=== PATIENT | female | born 1990 | race Caucasian/White ===

== ENCOUNTER 2020-03-01 09:06 | Observation (INO) ==
[2020-03-01] MEDS ORDERED: NS 1000 ML 1,000 ML ONE (09:43)
[2020-03-01] MEDS ORDERED: ZOFRAN INJ 4 MG VIAL ONE (09:43)
[2020-03-01] MEDS ORDERED: DEMEROL INJ ONE (09:43)
[2020-03-01] MEDS ORDERED: ZOFRAN INJ 4 MG VIAL IVP ONE (09:46)
[2020-03-01] MEDS ORDERED: NS 1000 ML 1,000 ML IV ONE (09:46)
[2020-03-01] MEDS ORDERED: DEMEROL INJ IVP ONE (09:46)
--- NOTE | 2020-03-01 09:50 | ED.ABDFE ---
HPI Time Seen Time Seen by Provider: 03/01/20 09:46 PCP Primary Care Physician: OBED Complaint Chief Complaint:: PT C/O HAVING SEVERE ABD PAIN, NOT BEING ABLE TO KEEP ANYTHING DOWN. PT STATES SHE HAS NOTICED HAVING BLOOD TINGE IN HER VOMIT. PT STATES SHE WAS JUST RECENTLY DIAGNOSED WITH CHRONS AND SHE THINKS SHE IS HAVING A FLARE UP. PT STATES SHE HAS BEEN HAVING THESE PROBLEMS FOR THE PAST 2 WEEKS IT IS JUST NOT GETTING ANY BETTER ONLY WORSE, BUT WHEN SHE SEEN THE BLOOD TINGE SHE DECIDED SHE NEEDED TO BE SEEN COVID-19 Coronavirus risk:travel/contact w/high risk person: No Has patient experienced Coronavirus symptoms: No Source History Provided: Patient Mode of arrival Mode of Arrival: Ambulatory Timing Onset of Chief Complaint: 02/29/20 PMH PMH Past Medical History: Yes Past Medical History: GERD Past Medical History Comment: CHRONS Past Surgical History: Yes Surgical History: Appendectomy, and [facility] Family History History of Family Medical Conditions: Yes Family Medical History: Coronary Artery Disease and Hypertension Social History Does any household member use tobacco: No Alcohol Use: Rarely Do you use any recreational Drugs:: No Lives With: Family Lives Where: Home Travel Risk Coronavirus risk:travel/contact w/high risk person: No Has patient experienced Coronavirus symptoms: No Infectious screening In the last 2 months have you had wt loss of >10#?: NO Have you had fever, night sweats or hemotysis?: No Have you traveled outside the country in the last 6 months?: No Isolation: Standard PE Vital Signs Vitals: Temperature 98.1 F Pulse Rate 82 Respiratory Rate 22 Blood Pressure [Right Arm] 115/60 Blood Pressure 124/78 O2 Sat by Pulse Oximetry 96 ROR Labs Reviewed Result Diagrams: 03/01/20 09:42 03/01/20 09:42 Laboratory: WBC 13.3 X10^3/uL (3.6-10.0) H 03/01/20 09:42 RBC 4.63 X10^6/uL (3.5-5.4) 03/01/20 09:42 Hgb 13.2 g/dL (12.0-16.0) 03/01/20 09:42 Hct 39.5 % (36.0-47.0) 03/01/20 09:42 MCV 85.2 fL (80.0-100.0) 03/01/20 09:42 MCH 28.6 pg (27.0-34.0) 03/01/20 09:42 MCHC 33.5 g/dL (33.0-35.0) 03/01/20 09:42 RDW 13.4 % (11.6-16.5) 03/01/20 09:42 Plt Count 565 X10^3/uL (150.0-450.0) H 03/01/20 09:42 MPV 7.4 fL (7.4-11.0) 03/01/20 09:42 Neut % (Auto) 81.3 % (42.0-75.0) H 03/01/20 09:42 Lymph % (Auto) 9.1 % (21.0-51.0) L 03/01/20 09:42 [place] % (Auto) 8.9 % (0.0-13.0) 03/01/20 09:42 Eos % (Auto) 0.2 % (0.9-2.9) L 03/01/20 09:42 Baso % (Auto) 0.5 % (0.2-1.0) 03/01/20 09:42 Neut # (Auto) 10.8 x10^3/uL (2.2-4.8) H 03/01/20 09:42 Lymph # (Auto) 1.2 X10^3/uL (1.3-2.9) L 03/01/20 09:42 [place] # (Auto) 1.2 x10^3/uL (0.3-0.8) H 03/01/20 09:42 Eos # (Auto) 0.0 x10^3/uL (0.0-0.2) 03/01/20 09:42 Baso # (Auto) 0.1 X10^3/uL (0.0-0.1) 03/01/20 09:42 Absolute Nucleated RBC 0.0 /100WBC 03/01/20 09:42 Sodium 138 mmol/L (136-145) 03/01/20 09:42 Corrected Sodium TNP 03/01/20 09:42 Potassium 3.7 mmol/L (3.5-5.1) 03/01/20 09:42 Chloride 101 mmol/L (98-107) 03/01/20 09:42 Carbon Dioxide 25.1 mmol/L (21-32) 03/01/20 09:42 BUN 8 mg/dL (7-18) 03/01/20 09:42 Creatinine 0.89 mg/dL (0.55-1.02) 03/01/20 09:42 Est GFR (MDRD) Af Amer > 60 (>60) 03/01/20 09:42 Est GFR (MDRD) Non-Af > 60 (>60) 03/01/20 09:42 Glucose 97 mg/dL (65-99) 03/01/20 09:42 Calcium 9.2 mg/dL (8.5-10.1) 03/01/20 09:42 Corrected Calcium TNP 03/01/20 09:42 Total Bilirubin 0.50 mg/dL (0.2-1.0) 03/01/20 09:42 AST 21 Units/L (15-37) 03/01/20 09:42 ALT 47 Units/L (12-78) 03/01/20 09:42 Alkaline Phosphatase 90 Units/L (46-116) 03/01/20 09:42 Total Protein 7.9 g/dL (6.4-8.2) 03/01/20 09:42 Albumin 3.7 g/dL (3.4-5.0) 03/01/20 09:42 Globulin 4.2 g/dL (2.5-4.5) 03/01/20 09:42 Albumin/Globulin Ratio 0.9 Ratio (1.1-2.1) L 03/01/20 09:42 Amylase 23 Units/L (25-115) L 03/01/20 09:42 Lipase 71 Units/L (73-393) L 03/01/20 09:42 HCG, Qual Negative <10 mIU/mL 03/01/20 09:42 Specimen Type Clean catch urine 03/01/20 09:42 Urine Color Dark yellow (YELLOW) 03/01/20 09:42 Urine Appearance Slightly hazy (CLEAR) 03/01/20 09:42 Urine pH 5.0 (5.0 - 8.0) 03/01/20 09:42 Ur Specific [place] 1.025 (1.000-1.030) 03/01/20 09:42 Urine Protein 2+ (NEGATIVE) 03/01/20 09:42 Urine Glucose (UA) Negative (NEGATIVE) 03/01/20 09:42 Urine Ketones 3+ (NEGATIVE) 03/01/20 09:42 Urine Occult Blood Negative (NEGATIVE) 03/01/20 09:42 Urine Nitrite Negative (NEGATIVE) 03/01/20 09:42 Urine Bilirubin 1+ (NEGATIVE) 03/01/20 09:42 Urine Urobilinogen 2+ (NORMAL) 03/01/20 09:42 Ur Leukocyte Esterase 1+ (NEGATIVE) 03/01/20 09:42 Urine RBC 0-2 /HPF (0-3) 03/01/20 09:42 Urine WBC 0-2 /HPF (0-5) 03/01/20 09:42 Ur Squamous Epith Cells Many /HPF (NEGATIVE) 03/01/20 09:42 Amorphous Sediment 1+ /HPF (NEGATIVE) 03/01/20 09:42 Urine Bacteria Trace /HPF (NEGATIVE) 03/01/20 09:42 Urine Mucus Few /HPF (NEGATIVE) 03/01/20 09:42 Ur Culture Indicated? No/not indicated 03/01/20 09:42 SARS-CoV-2 (PCR) Negative (NEGATIVE) 03/01/20 13:17 Opioid Opioid Risk Tool Age (David box if 16-45): Yes History of Preadolescent Sexual Abuse: No Total: 1 Total Score Risk Category: Low Risk Copyright: Barry MELENDEZ predicting aberrant behaviors
[2020-03-01 10:15] LABS: BILIRUBIN,URINE 1+ (NEGATIVE); BLOOD/HEMOGLOBIN,URINE NEGATIVE (NEGATIVE); GLUCOSE, URINE NEGATIVE (NEGATIVE); KETONES,URINE 3+ (NEGATIVE); LEUKOCYTE ESTERASE ,URINE 1+ (NEGATIVE); NITRITES,URINE NEGATIVE (NEGATIVE); PROTEIN,URINE 2+ (NEGATIVE); UROBILINOGEN,URINE 2+ (NORMAL)
[2020-03-01 10:17] LABS: BASOPHILS # (AUTO) 0.1 X10^3/uL (0.0-0.1); BASOPHILS % (AUTO) 0.5 % (0.2-1.0); EOSINOPHILS % (AUTO) 0.2 % (0.9-2.9); HEMATOCRIT 39.5 % (36.0-47.0); HEMOGLOBIN 13.2 g/dL (12.0-16.0); LYMPHOCYTES # (AUTO) 1.2 X10^3/uL (1.3-2.9); LYMPHOCYTES % (AUTO) 9.1 % (21.0-51.0); MEAN CORPUSCULAR HEMOGLOBIN 28.6 pg (27.0-34.0); MEAN CORPUSCULAR HGB CONC 33.5 g/dL (33.0-35.0); MEAN CORPUSCULAR VOLUME 85.2 fL (80.0-100.0); MEAN PLATELET VOLUME 7.4 fL (7.4-11.0); MONOCYTES # (AUTO) 1.2 x10^3/uL (0.3-0.8); MONOCYTES % (AUTO) 8.9 % (0.0-13.0); NEUTROPHILS # (AUTO) 10.8 x10^3/uL (2.2-4.8); NEUTROPHILS % (AUTO) 81.3 % (42.0-75.0); PLATELET COUNT 565 X10^3/uL (150.0-450.0); RED BLOOD COUNT 4.63 X10^6/uL (3.5-5.4); RED CELL DISTRIBUTION WIDTH 13.4 % (11.6-16.5); WHITE BLOOD COUNT 13.3 X10^3/uL (3.6-10.0)
[2020-03-01 10:26] LABS: SERUM PREGNANCY TEST, QUAL NEGATIVE <10 mIU/mL
[2020-03-01 10:30] LABS: ALANINE AMINOTRANSFERASE 47 Units/L (12-78); ALBUMIN 3.7 g/dL (3.4-5.0); ALKALINE PHOSPHATASE 90 Units/L (46-116); AMYLASE 23 Units/L (25-115); ASPARTATE AMINO TRANSFERASE 21 Units/L (15-37); BLOOD UREA NITROGEN 8 mg/dL (7-18); CALCIUM 9.2 mg/dL (8.5-10.1); CARBON DIOXIDE 25.1 mmol/L (21-32); CHLORIDE 101 mmol/L (98-107); COLOR,URINE DARK YELLOW (YELLOW); CREATININE 0.89 mg/dL (0.55-1.02); LIPASE 71 Units/L (73-393); SODIUM 138 mmol/L (136-145); TOTAL PROTEIN 7.9 g/dL (6.4-8.2); eGFR NON BLACK RACES > 60 (>60)
[2020-03-01 10:31] LABS: AMORPHOUS SEDIMENT,UR 1+ /HPF (NEGATIVE); APPEARANCE,URINE SLIGHTLY HAZY (CLEAR); BACTERIA,URINE TRACE /HPF (NEGATIVE); MUCUS,URINE FEW /HPF (NEGATIVE); RBC,URINE 0-2 /HPF (0-3); SQUAMOUS EPITHELIAL CELL,UR MANY /HPF (NEGATIVE)
[2020-03-01] MEDS ORDERED: DILAUDID INJ IVP ONE (11:09)
[2020-03-01] MEDS ORDERED: PEPCID 20 MG IV PREMIX* 20 MG/50 ML BAG IV ONE ×2 (11:10→11:15)
[2020-03-01] MEDS ORDERED: DILAUDID INJ ONE (11:15)
--- NOTE | 2020-03-01 12:43 | CT ---
ABDOMEN/PELVIS WITH CONHISTORY: Abdomen painComparison:06/16/2019Technique:Multiple axial images of the abdomen and pelvis were obtained from the lung bases to the pubic symphysis following the administration of IV contrast as well as oral contrast . Dose reduction techniques including Automated Exposure Control (AEC) and adjustment of mA and kV were utlized.Findings:The heart is normal in size. There is no pericardial effusion. Lung bases are clear without focal consolidation, pleural effusion or pneumothorax.Liver and spleen are normal in size, enhancement characteristics and contour. No focal lesions. The portal vein is patent. No ductal dilitation. Gallbladder is present. No calcified gallstones or gallbladder wall thickening. The pancreas is unremarkable. Adrenal glands are normal. Kidneys enhance symmetrically without hydronephrosis or nephrolithiasis.Severe inflammation in the region of the terminal ileum with what appears to be chronic scarring best seen on series 4, image 55. There appears to be chronic narrowing. There is upstream dilatation of small bowel measuring 4.3 cm. There also appears to be complex entero-enteric fistula in that area best seen on coronal images series 6 between image 16 and 23 as well as axial series 4 between images 52 and 57. Trace free fluid in the pelvis. Uid . no abnormal appearing mesenteric or retroperitoneal lymph nodes. . No free fluid or fluid collections.The bladder is normal in appearance. Uterus present. No free fluid or abnormal pelvic lymph nodes.No aggressive osseous lesions.IMPRESSION:1. 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
[2020-03-01] MEDS: ZOFRAN INJ 4 MG VIAL IVP SCH ×2 (16:43→21:13)
[2020-03-01] MEDS: DILAUDID INJ IVP PRN ×2 (18:17→22:40)
[2020-03-01] MEDS ORDERED: D5 1/2 NS 1000 ML 1,000 ML IV ONE (18:29)
[2020-03-01] MEDS ORDERED: FLAGYL IV PREMIX 500 MG BAG 500 MG/100 ML BAG IV ONE (18:30)
[2020-03-01] MEDS: D5 1/2 NS 1000 ML 1,000 ML IV SCH ×2 (18:40→20:22)
[2020-03-01] MEDS: FLAGYL IV PREMIX 500 MG BAG 500 MG/100 ML BAG IV SCH ×2 (18:40→23:00)
[2020-03-01] MEDS ORDERED: FLAGYL IV PREMIX 500 MG BAG 500 MG/100 ML BAG IV SCH (19:00)
[2020-03-01] MEDS: CIPRO IV 400 MG PREMIX* 400 MG/200 ML IV.SOLN. IV SCH ×2 (20:00→20:33)
[2020-03-01] MEDS ORDERED: SOLU-Medrol 40 MG VIAL ONE (20:26)
[2020-03-01] MEDS: SOLU-Medrol 40 MG VIAL IVP SCH (21:13)
[2020-03-01] MEDS ORDERED: ZOSYN VIAL 3.375 GRAMS 3.375 G in NS 100 ML IV + SPIKE MINIBAG* 100 ML IV SCH (22:00)
[2020-03-01] MEDS ORDERED: SOLU-Medrol 40 MG VIAL IVP SCH (22:00)
[2020-03-02] MEDS: D5 1/2 NS 1000 ML 1,000 ML IV SCH ×4 (03:00→20:23)
[2020-03-02] MEDS: FLAGYL IV PREMIX 500 MG BAG 500 MG/100 ML BAG IV SCH ×4 (04:00→20:30)
[2020-03-02] MEDS: SOLU-Medrol 40 MG VIAL IVP SCH ×3 (06:04→21:03)
[2020-03-02] MEDS: ZOFRAN INJ 4 MG VIAL IVP SCH ×4 (06:04→21:25)
[2020-03-02 06:31] LABS: BASOPHILS % (AUTO) 0.2 % (0.2-1.0); EOSINOPHILS % (AUTO) 0.1 % (0.9-2.9); HEMATOCRIT 35.4 % (36.0-47.0); LYMPHOCYTES # (AUTO) 0.5 X10^3/uL (1.3-2.9); LYMPHOCYTES % (AUTO) 10.5 % (21.0-51.0); MEAN CORPUSCULAR HGB CONC 33.9 g/dL (33.0-35.0); MEAN CORPUSCULAR VOLUME 85.6 fL (80.0-100.0); MEAN PLATELET VOLUME 6.9 fL (7.4-11.0); MONOCYTES # (AUTO) 0 x10^3/uL (0.3-0.8); NEUTROPHILS # (AUTO) 4.5 x10^3/uL (2.2-4.8); NEUTROPHILS % (AUTO) 88.2 % (42.0-75.0); PLATELET COUNT 413 X10^3/uL (150.0-450.0); RED BLOOD COUNT 4.14 X10^6/uL (3.5-5.4); RED CELL DISTRIBUTION WIDTH 13.6 % (11.6-16.5); WHITE BLOOD COUNT 5.1 X10^3/uL (3.6-10.0)
[2020-03-02 06:49] LABS: ALANINE AMINOTRANSFERASE 35 Units/L (12-78); ALKALINE PHOSPHATASE 72 Units/L (46-116); ASPARTATE AMINO TRANSFERASE 14 Units/L (15-37); BLOOD UREA NITROGEN 5 mg/dL (7-18); CALCIUM 8.9 mg/dL (8.5-10.1); CARBON DIOXIDE 25.2 mmol/L (21-32); CHLORIDE 102 mmol/L (98-107); COR CA(FOR HYPOALB) 9.7 mg/dL (8.5-10.1); COR NA(FOR HYPERGLY) 137 mmol/L (136-145); CREATININE 0.71 mg/dL (0.55-1.02); SODIUM 136 mmol/L (136-145); TOTAL PROTEIN 6.7 g/dL (6.4-8.2); eGFR NON BLACK RACES > 60 (>60)
--- NOTE | 2020-03-02 08:09 | DR.H&P ---
H&P History & Physical for Day of: H&P Date: 03/02/20 Chief Complaint Chief Complaint: Abdominal pain Allergies Allergies Allergy/AdvReac Type Severity Reaction Status Date / Time No Known Drug Allergies Allergy Verified 12/26/19 11:41 History of Present Illness History of Present Illness: Pt is a 29 y/o f pmhx recently diagnosed with Crohn's disease presenting with abdominal pain and nausea that has been progressively worsening over the past week. She reports her pain has being sharp, persistent, epigastric and right lower quadrant. Nausea has also caused her to vomit. She was recently prescribed prednisone by GI for possible Crohn's flare up. Labs/imaging: Wbc 13.3>5.1, Hgb 12, Plt 413, Na 136, K 4.1, Cr 0.71, Glucose 143, AST 14, ALT 35, AlkP 72, Lipase 71. test negative, UA not consistent with infection. COVID negative. 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 Pt is NPO, started on D5 1/2 NS@150ml/h, Solumedrol 80mg q8h, Abx:Ciprofloxacin + Flagyl, Dilauded, Zofran prn. Will consult surgery for further evaluation. Continue to monitor and follow up labs/imaging in the morning. Past Medical History Past Medical History: GERD Past Surgical History Surgical History: Appendectomy, and [facility] Surgery Family History Family Medical History: Coronary Artery Disease and Hypertension Social History Does patient currently use any type of tobacco product: No Have you used tobacco products in the last 12 months: No Type of Tobacco Use: None Does any household member use tobacco: No Alcohol Use: Rarely Drug Use: None Medications Home Medications: No Known Drug Allergies Allergy (Verified 12/26/19 11:41) Labs Result Diagrams: 03/02/20 06:00 03/02/20 06:00 Labs: Laboratory WBC 5.1 X10^3/uL (3.6-10.0) D 03/02/20 06:00 RBC 4.14 X10^6/uL (3.5-5.4) 03/02/20 06:00 Hgb 12.0 g/dL (12.0-16.0) 03/02/20 06:00 Hct 35.4 % (36.0-47.0) L 03/02/20 06:00 MCV 85.6 fL (80.0-100.0) 03/02/20 06:00 MCH 29.0 pg (27.0-34.0) 03/02/20 06:00 MCHC 33.9 g/dL (33.0-35.0) 03/02/20 06:00 RDW 13.6 % (11.6-16.5) 03/02/20 06:00 Plt Count 413 X10^3/uL (150.0-450.0) 03/02/20 06:00 MPV 6.9 fL (7.4-11.0) L 03/02/20 06:00 Neut % (Auto) 88.2 % (42.0-75.0) H 03/02/20 06:00 Lymph % (Auto) 10.5 % (21.0-51.0) L 03/02/20 06:00 [place] % (Auto) 1.0 % (0.0-13.0) 03/02/20 06:00 Eos % (Auto) 0.1 % (0.9-2.9) L 03/02/20 06:00 Baso % (Auto) 0.2 % (0.2-1.0) 03/02/20 06:00 Neut # (Auto) 4.5 x10^3/uL (2.2-4.8) 03/02/20 06:00 Lymph # (Auto) 0.5 X10^3/uL (1.3-2.9) L 03/02/20 06:00 [place] # (Auto) 0 x10^3/uL (0.3-0.8) L 03/02/20 06:00 Eos # (Auto) 0.0 x10^3/uL (0.0-0.2) 03/02/20 06:00 Baso # (Auto) 0.0 X10^3/uL (0.0-0.1) 03/02/20 06:00 Absolute Nucleated RBC 0.1 /100WBC 03/02/20 06:00 Sodium 136 mmol/L (136-145) 03/02/20 06:00 Corrected Sodium 137 mmol/L (136-145) 03/02/20 06:00 Potassium 4.1 mmol/L (3.5-5.1) 03/02/20 06:00 Chloride 102 mmol/L (98-107) 03/02/20 06:00 Carbon Dioxide 25.2 mmol/L (21-32) 03/02/20 06:00 BUN 5 mg/dL (7-18) L 03/02/20 06:00 Creatinine 0.71 mg/dL (0.55-1.02) 03/02/20 06:00 Est GFR (MDRD) Af Amer > 60 (>60) 03/02/20 06:00 Est GFR (MDRD) Non-Af > 60 (>60) 03/02/20 06:00 Glucose 143 mg/dL (65-99) H 03/02/20 06:00 Calcium 8.9 mg/dL (8.5-10.1) 03/02/20 06:00 Corrected Calcium 9.7 mg/dL (8.5-10.1) 03/02/20 06:00 Total Bilirubin 0.30 mg/dL (0.2-1.0) 03/02/20 06:00 AST 14 Units/L (15-37) L 03/02/20 06:00 ALT 35 Units/L (12-78) 03/02/20 06:00 Alkaline Phosphatase 72 Units/L (46-116) 03/02/20 06:00 Total Protein 6.7 g/dL (6.4-8.2) 03/02/20 06:00 Albumin 3.0 g/dL (3.4-5.0) L 03/02/20 06:00 Globulin 3.7 g/dL (2.5-4.5) 03/02/20 06:00 Albumin/Globulin Ratio 0.8 Ratio (1.1-2.1) L 03/02/20 06:00 Amylase 23 Units/L (25-115) L 03/01/20:42 Lipase 71 Units/L (73-393) L 03/01/20 09:42 HCG, Qual Negative <10 mIU/mL 03/01/20 09:42 Specimen Type Clean catch urine 03/01/20:42 Urine Color Dark yellow (YELLOW) 03/01/20:42 Urine Appearance Slightly hazy (CLEAR) 03/01/20 09:42 Urine pH 5.0 (5.0 - 8.0) 03/01/20 09:42 Ur Specific [place] 1.025 (1.000-1.030) 03/01/20 09:42 Urine Protein 2+ (NEGATIVE) 03/01/20 09:42 Urine Glucose (UA) Negative (NEGATIVE) 03/01/20 09:42 Urine Ketones 3+ (NEGATIVE) 03/01/20 09:42 Urine Occult Blood Negative (NEGATIVE) 03/01/20 09:42 Urine Nitrite Negative (NEGATIVE) 03/01/20 09:42 Urine Bilirubin 1+ (NEGATIVE) 03/01/20 09:42 Urine Urobilinogen 2+ (NORMAL) 03/01/20 09:42 Ur Leukocyte Esterase 1+ (NEGATIVE) 03/01/20 09:42 Urine RBC 0-2 /HPF (0-3) 03/01/20 09:42 Urine WBC 0-2 /HPF (0-5) 03/01/20 09:42 Ur Squamous Epith Cells Many /HPF (NEGATIVE) 03/01/20 09:42 Amorphous Sediment 1+ /HPF (NEGATIVE) 03/01/20 09:42 Urine Bacteria Trace /HPF (NEGATIVE) 03/01/20 09:42 Urine Mucus Few /HPF (NEGATIVE) 03/01/20 09:42 Ur Culture Indicated? No/not indicated 03/01/20 09:42 SARS-CoV-2 (PCR) Negative (NEGATIVE) 03/01/20 13:17 Review of Systems Constitutional: No Symptoms Reported Eyes: No Symptoms Reported ENT: No Symptoms Reported Respiratory: No Symptoms Reported Cardiovascular: No Symptoms Reported Gastrointestinal: Nausea, Vomiting and Abdominal Pain Genitourinary: No Symptoms Reported Musculoskeletal: No Symptoms Reported Skin: No Symptoms Reported Neurological: No Symptoms Reported Physical Exam Vital Signs: Temperature 97.6 F Pulse Rate [Right Radial] 57 Pulse Rate 82 Respiratory Rate 18 Blood Pressure [Right Arm] 107/58 Blood Pressure 124/78 O2 Sat by Pulse Oximetry 96 Oriented: Normal Eyes: Normal Ear: Normal Nose: Normal Throat: Normal Respiratory: Clear Throughout Cardiovascular: Normal : Normal Auscultation: Bowel Sounds: Normal Palpation: Normal Tenderness: Diffuse and Moderate Skin: Normal Musculoskeletal: Normal Psychiatric: Normal Mood Description: Calm and Appropriate Affect: Normal Speech Pattern: Clear and Appropriate Assessment/Plan (1) Crohn's colitis: Status: Acute Plan: Antibiotics, Solumedrol Q8H, pain control Consult surgery. Review H&P Reviewed: Yes Patient was examined?: Yes
[2020-03-02] MEDS: CIPRO IV 400 MG PREMIX* 400 MG/200 ML IV.SOLN. IV SCH ×2 (09:00→20:30)
[2020-03-02] MEDS: DILAUDID INJ IVP PRN ×2 (11:36→21:41)
[2020-03-02 11:47] VITALS: BMI 27.0
--- NOTE | 2020-03-02 15:03 | DR.PROGNOT ---
Hospital Progress Notes - Progress Note for Day of: Progress Note Date: 03/02/20 - Chief Complaint Chief Complaint: less abdominal pain today . no vomiting . having loose BM , no bleeding . WBC 5.1.. Hgb 12. with 88 seg .. normal Lytes and LFT .. albumin 3. U/A consentrated urine and 3= ketons - Past Medical Family Social History Past Med/Fam/Surg Hx: No changes since H&P Allergies: Allergies No Known Drug Allergies Allergy (Verified 12/26/19 11:41) - Review Of Systems ROS: No change since H&P - Vital Signs Vital Signs: Temperature 98.3 F Pulse Rate [Right Radial] 60 Pulse Rate 82 Respiratory Rate 18 Blood Pressure [Right Arm] 97/52 Blood Pressure 124/78 O2 Sat by Pulse Oximetry 97 - Physical Exam Oriented: Normal Eyes: Normal Ear: Normal Nose: Normal Throat: Normal Cardiovascular: Normal : Normal GI:Auscultation: Decreased GI:Palpation: Normal GI: Tenderness: Diffuse (abdomen is soft with diffuse tenderness . more RLQ .. no clear masses felt ), Moderate Skin: Normal Musculoskeletal: Normal Psychiatric: Normal Mood Description: Calm, Appropriate Affect: Normal Speech Pattern: Clear, Appropriate - Laboratory and Diagnostics Result Diagrams: 03/02/20 06:00 03/02/20 06:00 Labs: Laboratory WBC 5.1 X10^3/uL (3.6-10.0) D 03/02/20 06:00 RBC 4.14 X10^6/uL (3.5-5.4) 03/02/20 06:00 Hgb 12.0 g/dL (12.0-16.0) 03/02/20 06:00 Hct 35.4 % (36.0-47.0) L 03/02/20 06:00 MCV 85.6 fL (80.0-100.0) 03/02/20 06:00 MCH 29.0 pg (27.0-34.0) 03/02/20 06:00 MCHC 33.9 g/dL (33.0-35.0) 03/02/20 06:00 RDW 13.6 % (11.6-16.5) 03/02/20 06:00 Plt Count 413 X10^3/uL (150.0-450.0) 03/02/20 06:00 MPV 6.9 fL (7.4-11.0) L 03/02/20 06:00 Neut % (Auto) 88.2 % (42.0-75.0) H 03/02/20 06:00 Lymph % (Auto) 10.5 % (21.0-51.0) L 03/02/20 06:00 [place] % (Auto) 1.0 % (0.0-13.0) 03/02/20 06:00 Eos % (Auto) 0.1 % (0.9-2.9) L 03/02/20 06:00 Baso % (Auto) 0.2 % (0.2-1.0) 03/02/20 06:00 Neut # (Auto) 4.5 x10^3/uL (2.2-4.8) 03/02/20 06:00 Lymph # (Auto) 0.5 X10^3/uL (1.3-2.9) L 03/02/20 06:00 [place] # (Auto) 0 x10^3/uL (0.3-0.8) L 03/02/20 06:00 Eos # (Auto) 0.0 x10^3/uL (0.0-0.2) 03/02/20 06:00 Baso # (Auto) 0.0 X10^3/uL (0.0-0.1) 03/02/20 06:00 Absolute Nucleated RBC 0.1 /100WBC 03/02/20 06:00 Sodium 136 mmol/L (136-145) 03/02/20 06:00 Corrected Sodium 137 mmol/L (136-145) 03/02/20 06:00 Potassium 4.1 mmol/L (3.5-5.1) 03/02/20 06:00 Chloride 102 mmol/L (98-107) 03/02/20 06:00 Carbon Dioxide 25.2 mmol/L (21-32) 03/02/20 06:00 BUN 5 mg/dL (7-18) L 03/02/20 06:00 Creatinine 0.71 mg/dL (0.55-1.02) 03/02/20 06:00 Est GFR (MDRD) Af Amer > 60 (>60) 03/02/20 06:00 Est GFR (MDRD) Non-Af > 60 (>60) 03/02/20 06:00 Glucose 143 mg/dL (65-99) H 03/02/20 06:00 Calcium 8.9 mg/dL (8.5-10.1) 03/02/20 06:00 Corrected Calcium 9.7 mg/dL (8.5-10.1) 03/02/20 06:00 Total Bilirubin 0.30 mg/dL (0.2-1.0) 03/02/20 06:00 AST 14 Units/L (15-37) L 03/02/20 06:00 ALT 35 Units/L (12-78) 03/02/20 06:00 Alkaline Phosphatase 72 Units/L (46-116) 03/02/20 06:00 Total Protein 6.7 g/dL (6.4-8.2) 03/02/20 06:00 Albumin 3.0 g/dL (3.4-5.0) L 03/02/20 06:00 Globulin 3.7 g/dL (2.5-4.5) 03/02/20 06:00 Albumin/Globulin Ratio 0.8 Ratio (1.1-2.1) L 03/02/20 06:00 Amylase 23 Units/L (25-115) L 03/01/20 09:42 Lipase 71 Units/L (73-393) L 03/01/20 09:42 HCG, Qual Negative <10 mIU/mL 03/01/20 09:42 Specimen Type Clean catch urine 03/01/20 09:42 Urine Color Dark yellow (YELLOW) 03/01/20 09:42 Urine Appearance Slightly hazy (CLEAR) 03/01/20 09:42 Urine pH 5.0 (5.0 - 8.0) 03/01/20 09:42 Ur Specific [place] 1.025 (1.000-1.030) 03/01/20 09:42 Urine Protein 2+ (NEGATIVE) 03/01/20 09:42 Urine Glucose (UA) Negative (NEGATIVE) 03/01/20 09:42 Urine Ketones 3+ (NEGATIVE) 03/01/20 09:42 Urine Occult Blood Negative (NEGATIVE) 03/01/20 09:42 Urine Nitrite Negative (NEGATIVE) 03/01/20 09:42 Urine Bilirubin 1+ (NEGATIVE) 03/01/20 09:42 Urine Urobilinogen 2+ (NORMAL) 03/01/20 09:42 Ur Leukocyte Esterase 1+ (NEGATIVE) 03/01/20 09:42 Urine RBC 0-2 /HPF (0-3) 11 09:42 Urine WBC 0-2 /HPF (0-5) 11 09:42 Ur Squamous Epith Cells Many /HPF (NEGATIVE) 03/01/20 09:42 Amorphous Sediment 1+ /HPF (NEGATIVE) 03/01/20 09:42 Urine Bacteria Trace /HPF (NEGATIVE) 03/01/20 09:42 Urine Mucus Few /HPF (NEGATIVE) 03/01/20 09:42 Ur Culture Indicated? No/not indicated 03/01/20 09:42 SARS-CoV-2 (PCR) Negative (NEGATIVE) 03/01/20 13:17 - Assessment and Plan 1: active Crohn's disease with possible entero-entero fistula ! same IV ATB . Solumedrol , IVF and start on clear diet .
[2020-03-02] MEDS ORDERED: PEPCID TAB 20 MG PO PRN (18:04)
[2020-03-03] MEDS: FLAGYL IV PREMIX 500 MG BAG 500 MG/100 ML BAG IV SCH ×4 (02:06→20:34)
[2020-03-03] MEDS: D5 1/2 NS 1000 ML 1,000 ML IV SCH ×5 (03:10→22:30)
[2020-03-03] MEDS: DILAUDID INJ IVP PRN ×2 (03:17→17:03)
[2020-03-03] MEDS: ZOFRAN INJ 4 MG VIAL IVP SCH ×4 (03:35→21:03)
[2020-03-03] MEDS: SOLU-Medrol 40 MG VIAL IVP SCH ×3 (05:02→21:04)
[2020-03-03 06:02] LABS: BASOPHILS % (AUTO) 0 % (0.2-1.0); HEMATOCRIT 31.3 % (36.0-47.0); HEMOGLOBIN 10.8 g/dL (12.0-16.0); LYMPHOCYTES # (AUTO) 0.9 X10^3/uL (1.3-2.9); LYMPHOCYTES % (AUTO) 8.7 % (21.0-51.0); MEAN CORPUSCULAR HEMOGLOBIN 29.4 pg (27.0-34.0); MEAN CORPUSCULAR HGB CONC 34.5 g/dL (33.0-35.0); MEAN CORPUSCULAR VOLUME 85.3 fL (80.0-100.0); MONOCYTES # (AUTO) 0.3 x10^3/uL (0.3-0.8); MONOCYTES % (AUTO) 2.5 % (0.0-13.0); NEUTROPHILS % (AUTO) 88.8 % (42.0-75.0); PLATELET COUNT 402 X10^3/uL (150.0-450.0); RED BLOOD COUNT 3.67 X10^6/uL (3.5-5.4); RED CELL DISTRIBUTION WIDTH 13.6 % (11.6-16.5); WHITE BLOOD COUNT 10.1 X10^3/uL (3.6-10.0)
[2020-03-03 06:23] LABS: ALANINE AMINOTRANSFERASE 27 Units/L (12-78); ALBUMIN 2.6 g/dL (3.4-5.0); ALKALINE PHOSPHATASE 60 Units/L (46-116); ASPARTATE AMINO TRANSFERASE 11 Units/L (15-37); BLOOD UREA NITROGEN 4 mg/dL (7-18); CALCIUM 8.7 mg/dL (8.5-10.1); CARBON DIOXIDE 25.5 mmol/L (21-32); CHLORIDE 107 mmol/L (98-107); COR CA(FOR HYPOALB) 9.8 mg/dL (8.5-10.1); COR NA(FOR HYPERGLY) 141 mmol/L (136-145); CREATININE 0.74 mg/dL (0.55-1.02); SODIUM 139 mmol/L (136-145); TOTAL PROTEIN 5.9 g/dL (6.4-8.2); eGFR NON BLACK RACES > 60 (>60)
[2020-03-03] MEDS: CIPRO IV 400 MG PREMIX* 400 MG/200 ML IV.SOLN. IV SCH ×2 (09:39→20:33)
--- NOTE | 2020-03-03 11:23 | PCM.PROG ---
Progress Note Progress Note for Day of Date of Exam: 03/03/20 Subjective Subjective: Pt is a 29 y/o f pmhx Crohn's disease admitted for Crohn's colitis flare up. This morning patient reports some improvement in her symptoms. Abdominal pain has reduced but still having nausea. She was started on CLD and has tolerated well, will advance as tolerated. 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 Treatment course includes: D5 1/2 NS@150ml/h, Solumedrol 80mg q8h, Abx:Ciprofloxacin + Flagyl, Dilauded, Zofran prn. Leukocytosis likely steroid induced. Will continue to monitor and follow up labs/imaging in the morning. Past Medical Family Social History Past Med/Fam/Surg Hx: No changes since H&P Allergies: Allergies No Known Drug Allergies Allergy (Verified 12/26/19 11:41) Review of Systems ROS: No change since H&P Vital Signs and I&O's Vital Signs: Temperature 98.0 F Pulse Rate [Right Radial] 90 Pulse Rate 82 Respiratory Rate 18 Blood Pressure [Left Arm] 107/71 Blood Pressure [Right Arm] 116/73 Blood Pressure 124/78 O2 Sat by Pulse Oximetry 96 Intake and Output: Intake & Output 02/29/20 03/01/20 03/02/20 03/03/20 23:59 23:59 23:59 23:59 Intake Total 834 / 834 3832 / 3832 1022 / 1022 Balance 834 / 834 3832 / 3832 1022 / 1022 Physical Exam Oriented: Normal Eyes: Normal Ear: Normal Nose: Normal Throat: Normal Respiratory: Normal Cardiovascular: Normal : Normal Auscultation: Bowel Sounds: Decreased Tenderness: Diffuse (abdomen is soft with diffuse tenderness . more RLQ .. no clear masses felt ) and Moderate Skin: Normal Musculoskeletal: Normal Psychiatric: Normal Mood Description: Calm and Appropriate Affect: Normal Speech Pattern: Clear and Appropriate Laboratory and Diagnostics Result Diagrams: 03/03/20 05:19 03/03/20 05:19 Labs: Laboratory WBC 10.1 X10^3/uL (3.6-10.0) H 03/03/20 05:19 RBC 3.67 X10^6/uL (3.5-5.4) 03/03/20 05:19 Hgb 10.8 g/dL (12.0-16.0) L 03/03/20 05:19 Hct 31.3 % (36.0-47.0) L 03/03/20 05:19 MCV 85.3 fL (80.0-100.0) 03/03/20 05:19 MCH 29.4 pg (27.0-34.0) 03/03/20 05:19 MCHC 34.5 g/dL (33.0-35.0) 03/03/20 05:19 RDW 13.6 % (11.6-16.5) 03/03/20 05:19 Plt Count 402 X10^3/uL (150.0-450.0) 03/03/20 05:19 MPV 7.0 fL (7.4-11.0) L 03/03/20 05:19 Neut % (Auto) 88.8 % (42.0-75.0) H 03/03/20 05:19 Lymph % (Auto) 8.7 % (21.0-51.0) L 03/03/20 05:19 [place] % (Auto) 2.5 % (0.0-13.0) 03/03/20 05:19 Eos % (Auto) 0.0 % (0.9-2.9) L 03/03/20 05:19 Baso % (Auto) 0 % (0.2-1.0) L 03/03/20 05:19 Neut # (Auto) 9.0 x10^3/uL (2.2-4.8) H 03/03/20 05:19 Lymph # (Auto) 0.9 X10^3/uL (1.3-2.9) L 03/03/20 05:19 [place] # (Auto) 0.3 x10^3/uL (0.3-0.8) 03/03/20 05:19 Eos # (Auto) 0.0 x10^3/uL (0.0-0.2) 03/03/20 05:19 Baso # (Auto) 0.0 X10^3/uL (0.0-0.1) 03/03/20 05:19 Absolute Nucleated RBC 0.0 /100WBC 03/03/20 05:19 Sodium 139 mmol/L (136-145) 03/03/20 05:19 Corrected Sodium 141 mmol/L (136-145) 03/03/20 05:19 Potassium 3.7 mmol/L (3.5-5.1) 03/03/20 05:19 Chloride 107 mmol/L (98-107) 03/03/20 05:19 Carbon Dioxide 25.5 mmol/L (21-32) 03/03/20 05:19 BUN 4 mg/dL (7-18) L 03/03/20 05:19 Creatinine 0.74 mg/dL (0.55-1.02) 03/03/20 05:19 Est GFR (MDRD) Af Amer > 60 (>60) 03/03/20 05:19 Est GFR (MDRD) Non-Af > 60 (>60) 03/03/20 05:19 Glucose 182 mg/dL (65-99) H 03/03/20 05:19 Calcium 8.7 mg/dL (8.5-10.1) 03/03/20 05:19 Corrected Calcium 9.8 mg/dL (8.5-10.1) 03/03/20 05:19 Total Bilirubin 0.20 mg/dL (0.2-1.0) 03/03/20 05:19 AST 11 Units/L (15-37) L 03/03/20 05:19 ALT 27 Units/L (12-78) 03/03/20 05:19 Alkaline Phosphatase 60 Units/L (46-116) 03/03/20 05:19 Total Protein 5.9 g/dL (6.4-8.2) L 03/03/20 05:19 Albumin 2.6 g/dL (3.4-5.0) L 03/03/20 05:19 Globulin 3.3 g/dL (2.5-4.5) 03/03/20 05:19 Albumin/Globulin Ratio 0.8 Ratio (1.1-2.1) L 03/03/20 05:19 Amylase 23 Units/L (25-115) L 03/01/20 09:42 Lipase 71 Units/L (73-393) L 03/01/20 09:42 HCG, Qual Negative <10 mIU/mL 03/01/20 09:42 Specimen Type Clean catch urine 03/01/20 09:42 Urine Color Dark yellow (YELLOW) 03/01/20 09:42 Urine Appearance Slightly hazy (CLEAR) 03/01/20 09:42 Urine pH 5.0 (5.0 - 8.0) 03/01/20 09:42 Ur Specific [place] 1.025 (1.000-1.030) 03/01/20 09:42 Urine Protein 2+ (NEGATIVE) 03/01/20 09:42 Urine Glucose (UA) Negative (NEGATIVE) 03/01/20 09:42 Urine Ketones 3+ (NEGATIVE) 03/01/20 09:42 Urine Occult Blood Negative (NEGATIVE) 03/01/20 09:42 Urine Nitrite Negative (NEGATIVE) 03/01/20 09:42 Urine Bilirubin 1+ (NEGATIVE) 03/01/20 09:42 Urine Urobilinogen 2+ (NORMAL) 03/01/20 09:42 Ur Leukocyte Esterase 1+ (NEGATIVE) 03/01/20 09:42 Urine RBC 0-2 /HPF (0-3) 03/01/20 09:42 Urine WBC 0-2 /HPF (0-5) 03/01/20 09:42 Ur Squamous Epith Cells Many /HPF (NEGATIVE) 03/01/20 09:42 Amorphous Sediment 1+ /HPF (NEGATIVE) 03/01/20 09:42 Urine Bacteria Trace /HPF (NEGATIVE) 03/01/20 09:42 Urine Mucus Few /HPF (NEGATIVE) 03/01/20 09:42 Ur Culture Indicated? No/not indicated 03/01/20 09:42 SARS-CoV-2 (PCR) Negative (NEGATIVE) 03/01/20 13:17 Plan (1) Crohn's colitis: Status: Acute Plan: Antibiotics, Solumedrol Q8H, pain control Consult surgery. Advance diet as tolerated
[2020-03-04] MEDS: FLAGYL IV PREMIX 500 MG BAG 500 MG/100 ML BAG IV SCH ×4 (02:00→22:00)
[2020-03-04] MEDS: D5 1/2 NS 1000 ML 1,000 ML IV SCH ×3 (03:11→21:04)
[2020-03-04] MEDS: ZOFRAN INJ 4 MG VIAL IVP SCH ×4 (03:12→21:05)
[2020-03-04] MEDS: DILAUDID INJ IVP PRN ×2 (04:01→21:05)
[2020-03-04] MEDS: SOLU-Medrol 40 MG VIAL IVP SCH ×3 (05:06→21:04)
[2020-03-04 06:30] LABS: BASOPHILS % (AUTO) 0 % (0.2-1.0); HEMATOCRIT 32.6 % (36.0-47.0); HEMOGLOBIN 10.8 g/dL (12.0-16.0); LYMPHOCYTES # (AUTO) 0.9 X10^3/uL (1.3-2.9); MEAN CORPUSCULAR HEMOGLOBIN 28.4 pg (27.0-34.0); MEAN CORPUSCULAR HGB CONC 33.2 g/dL (33.0-35.0); MEAN CORPUSCULAR VOLUME 85.5 fL (80.0-100.0); MONOCYTES # (AUTO) 0.2 x10^3/uL (0.3-0.8); MONOCYTES % (AUTO) 1.8 % (0.0-13.0); NEUTROPHILS # (AUTO) 11.8 x10^3/uL (2.2-4.8); NEUTROPHILS % (AUTO) 91.2 % (42.0-75.0); PLATELET COUNT 410 X10^3/uL (150.0-450.0); RED BLOOD COUNT 3.81 X10^6/uL (3.5-5.4); RED CELL DISTRIBUTION WIDTH 13.6 % (11.6-16.5)
[2020-03-04 07:01] LABS: PLATELET MORPHOLOGY COMMENT NORMAL (NORMAL)
[2020-03-04 07:14] LABS: ALANINE AMINOTRANSFERASE 23 Units/L (12-78); ALBUMIN 2.6 g/dL (3.4-5.0); ALKALINE PHOSPHATASE 56 Units/L (46-116); ASPARTATE AMINO TRANSFERASE 10 Units/L (15-37); BLOOD UREA NITROGEN 7 mg/dL (7-18); CALCIUM 8.7 mg/dL (8.5-10.1); CARBON DIOXIDE 27.1 mmol/L (21-32); CHLORIDE 106 mmol/L (98-107); COR CA(FOR HYPOALB) 9.8 mg/dL (8.5-10.1); COR NA(FOR HYPERGLY) 142 mmol/L (136-145); CREATININE 0.71 mg/dL (0.55-1.02); SODIUM 140 mmol/L (136-145); TOTAL PROTEIN 5.7 g/dL (6.4-8.2); eGFR NON BLACK RACES > 60 (>60)
[2020-03-04] MEDS: CIPRO IV 400 MG PREMIX* 400 MG/200 ML IV.SOLN. IV SCH ×2 (09:30→21:04)
--- NOTE | 2020-03-04 10:33 | DR.PROGNOT ---
Hospital Progress Notes - Progress Note for Day of: Progress Note Date: 03/04/20 - Chief Complaint Chief Complaint: less abdominal pain today . tolerating oral intake. no bowel movement today , no bleeding . WBC 13.. Hgb 10.8 . with 91 seg .. normal Lytes and LFT .. albumin 2.6 . afebrile - Past Medical Family Social History Past Med/Fam/Surg Hx: No changes since H&P Allergies: Allergies No Known Drug Allergies Allergy (Verified 12/26/19 11:41) - Review Of Systems ROS: No change since H&P - Vital Signs Vital Signs: Temperature 97.9 F Pulse Rate [Right Radial] 50 Pulse Rate 82 Respiratory Rate 16 Blood Pressure [Left Arm] 118/66 Blood Pressure [Right Arm] 116/73 Blood Pressure 124/78 O2 Sat by Pulse Oximetry 97 - Physical Exam Oriented: Normal Eyes: Normal Ear: Normal Nose: Normal Throat: Normal Respiratory: Normal Cardiovascular: Normal : Normal GI:Auscultation: Decreased GI:Palpation: Normal GI: Tenderness: Diffuse (, flat abdomen with moderate RLQ tenderness..), RLQ, Moderate Skin: Normal Musculoskeletal: Normal Psychiatric: Normal Mood Description: Calm, Appropriate Affect: Normal Speech Pattern: Clear, Appropriate - Laboratory and Diagnostics Result Diagrams: 03/04/20 06:14 03/04/20 06:14 Labs: Laboratory WBC 13.0 X10^3/uL (3.6-10.0) H 03/04/20 06:14 RBC 3.81 X10^6/uL (3.5-5.4) 03/04/20 06:14 Hgb 10.8 g/dL (12.0-16.0) L 03/04/20 06:14 Hct 32.6 % (36.0-47.0) L 03/04/20 06:14 MCV 85.5 fL (80.0-100.0) 03/04/20 06:14 MCH 28.4 pg (27.0-34.0) 03/04/20 06:14 MCHC 33.2 g/dL (33.0-35.0) 03/04/20 06:14 RDW 13.6 % (11.6-16.5) 03/04/20 06:14 Plt Count 410 X10^3/uL (150.0-450.0) 03/04/20 06:14 Plt Count Comment Adequate (ADEQUATE) 03/04/20 06:14 MPV 7.0 fL (7.4-11.0) L 03/04/20 06:14 Neut % (Auto) 91.2 % (42.0-75.0) H 03/04/20 06:14 Lymph % (Auto) 7.0 % (21.0-51.0) L 03/04/20 06:14 [place] % (Auto) 1.8 % (0.0-13.0) 03/04/20 06:14 Eos % (Auto) 0.0 % (0.9-2.9) L 03/04/20 06:14 Baso % (Auto) 0 % (0.2-1.0) L 03/04/20 06:14 Neut # (Auto) 11.8 x10^3/uL (2.2-4.8) H 03/04/20 06:14 Lymph # (Auto) 0.9 X10^3/uL (1.3-2.9) L 03/04/20 06:14 [place] # (Auto) 0.2 x10^3/uL (0.3-0.8) L 03/04/20 06:14 Eos # (Auto) 0.0 x10^3/uL (0.0-0.2) 03/04/20 06:14 Baso # (Auto) 0.0 X10^3/uL (0.0-0.1) 03/04/20 06:14 Absolute Nucleated RBC 0.0 /100WBC 03/04/20 06:14 Total Counted 100 03/04/20 06:14 Neutrophils % (Manual) 90 % (39-76) H 03/04/20 06:14 Lymphocytes % (Manual) 8 % (13-43) L 03/04/20 06:14 Monocytes % (Manual) 2 % (4-9) L 03/04/20 06:14 Plt Morphology Comment Normal (NORMAL) 03/04/20 06:14 RBC Morphology Normal (NORMAL) 03/04/20 06:14 ESR 7 MM/HOUR (0-20) 03/04/20 06:14 Sodium 140 mmol/L (136-145) 03/04/20 06:14 Corrected Sodium 142 mmol/L (136-145) 03/04/20 06:14 Potassium 3.6 mmol/L (3.5-5.1) 03/04/20 06:14 Chloride 106 mmol/L (98-107) 03/04/20 06:14 Carbon Dioxide 27.1 mmol/L (21-32) 03/04/20 06:14 BUN 7 mg/dL (7-18) 03/04/20 06:14 Creatinine 0.71 mg/dL (0.55-1.02) 03/04/20 06:14 Est GFR (MDRD) Af Amer > 60 (>60) 03/04/20 06:14 Est GFR (MDRD) Non-Af > 60 (>60) 03/04/20 06:14 Glucose 189 mg/dL (65-99) H 03/04/20 06:14 Calcium 8.7 mg/dL (8.5-10.1) 03/04/20 06:14 Corrected Calcium 9.8 mg/dL (8.5-10.1) 03/04/20 06:14 Total Bilirubin 0.10 mg/dL (0.2-1.0) L 03/04/20 06:14 AST 10 Units/L (15-37) L 03/04/20 06:14 ALT 23 Units/L (12-78) 03/04/20 06:14 Alkaline Phosphatase 56 Units/L (46-116) 03/04/20 06:14 C-Reactive Protein 1.60 mg/L (0-3.0) 03/04/20 06:14 Total Protein 5.7 g/dL (6.4-8.2) L 03/04/20 06:14 Albumin 2.6 g/dL (3.4-5.0) L 03/04/20 06:14 Globulin 3.1 g/dL (2.5-4.5) 03/04/20 06:14 Albumin/Globulin Ratio 0.8 Ratio (1.1-2.1) L 03/04/20 06:14 Amylase 23 Units/L (25-115) L 03/01/20 09:42 Lipase 71 Units/L (73-393) L 03/01/20 09:42 HCG, Qual Negative <10 mIU/mL 03/01/20 09:42 Specimen Type Clean catch urine 03/01/20 09:42 Urine Color Dark yellow (YELLOW) 03/01/20 09:42 Urine Appearance Slightly hazy (CLEAR) 03/01/20 09:42 Urine pH 5.0 (5.0 - 8.0) 03/01/20 09:42 Ur Specific [place] 1.025 (1.000-1.030) 03/01/20 09:42 Urine Protein 2+ (NEGATIVE) 03/01/20 09:42 Urine Glucose (UA) Negative (NEGATIVE) 03/01/20 09:42 Urine Ketones 3+ (NEGATIVE) 03/01/20 09:42 Urine Occult Blood Negative (NEGATIVE) 03/01/20 09:42 Urine Nitrite Negative (NEGATIVE) 03/01/20 09:42 Urine Bilirubin 1+ (NEGATIVE) 03/01/20 09:42 Urine Urobilinogen 2+ (NORMAL) 03/01/20 09:42 Ur Leukocyte Esterase 1+ (NEGATIVE) 03/01/20 09:42 Urine RBC 0-2 /HPF (0-3) 03/01/20 09:42 Urine WBC 0-2 /HPF (0-5) 03/01/20 09:42 Ur Squamous Epith Cells Many /HPF (NEGATIVE) 03/01/20 09:42 Amorphous Sediment 1+ /HPF (NEGATIVE) 03/01/20 09:42 Urine Bacteria Trace /HPF (NEGATIVE) 03/01/20 09:42 Urine Mucus Few /HPF (NEGATIVE) 03/01/20 09:42 Ur Culture Indicated? No/not indicated 03/01/20 09:42 SARS-CoV-2 (PCR) Negative (NEGATIVE) 03/01/20 13:17 - Assessment and Plan 1: active Crohn's disease with possible entero-enteric fistula ! same IV ATB . reduce Solumedrol , IVF and start soft diet .
--- NOTE | 2020-03-04 10:40 | PCM.PROG ---
Progress Note Progress Note for Day of Date of Exam: 03/04/20 Subjective Subjective: Pt is a 29 y/o f pmhx Crohn's disease admitted for Crohn's colitis flare up. She reports feeling a little betteer this morning. Yesterday she tolerated advancing her diet, however did have some abdominal pain and nausea after lunch. Continue to advance as tolerated. 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 Treatment course includes: D5 1/2 NS@150ml/h, Solumedrol 80mg q8h, Abx:Ciprofloxacin + Flagyl, Dilauded, Zofran prn. Leukocytosis likely steroid induced, pt has remained afebrile. Will continue to monitor and follow up labs/imaging in the morning. Past Medical Family Social History Past Med/Fam/Surg Hx: No changes since H&P Allergies: Allergies No Known Drug Allergies Allergy (Verified 12/26/19 11:41) Review of Systems ROS: No change since H&P Vital Signs and I&O's Vital Signs: Temperature 97.9 F Pulse Rate [Right Radial] 50 Pulse Rate 82 Respiratory Rate 16 Blood Pressure [Left Arm] 118/66 Blood Pressure [Right Arm] 116/73 Blood Pressure 124/78 O2 Sat by Pulse Oximetry 97 Intake and Output: Intake & Output 03/01/20 03/02/20 03/03/20 03/04/20 23:59 23:59 23:59 23:59 Intake Total 834 / 834 3832 / 3832 2151 / 2151 795 / 795 Balance 834 / 834 3832 / 3832 2151 / 2151 795 / 795 Physical Exam Oriented: Normal Eyes: Normal Ear: Normal Nose: Normal Throat: Normal Respiratory: Normal Cardiovascular: Normal : Normal Auscultation: Bowel Sounds: Decreased Tenderness: Diffuse and Mild Skin: Normal Musculoskeletal: Normal Psychiatric: Normal Mood Description: Calm and Appropriate Affect: Normal Speech Pattern: Clear and Appropriate Laboratory and Diagnostics Result Diagrams: 03/04/20 06:14 03/04/20 06:14 Labs: Laboratory WBC 13.0 X10^3/uL (3.6-10.0) H 11/11/20 06:14 RBC 3.81 X10^6/uL (3.5-5.4) 03/04/20 06:14 Hgb 10.8 g/dL (12.0-16.0) L 03/04/20 06:14 Hct 32.6 % (36.0-47.0) L 03/04/20 06:14 MCV 85.5 fL (80.0-100.0) 03/04/20 06:14 MCH 28.4 pg (27.0-34.0) 03/04/20 06:14 MCHC 33.2 g/dL (33.0-35.0) 03/04/20 06:14 RDW 13.6 % (11.6-16.5) 03/04/20 06:14 Plt Count 410 X10^3/uL (150.0-450.0) 03/04/20 06:14 Plt Count Comment Adequate (ADEQUATE) 03/04/20 06:14 MPV 7.0 fL (7.4-11.0) L 03/04/20 06:14 Neut % (Auto) 91.2 % (42.0-75.0) H 03/04/20 06:14 Lymph % (Auto) 7.0 % (21.0-51.0) L 03/04/20 06:14 [place] % (Auto) 1.8 % (0.0-13.0) 03/04/20 06:14 Eos % (Auto) 0.0 % (0.9-2.9) L 03/04/20 06:14 Baso % (Auto) 0 % (0.2-1.0) L 03/04/20 06:14 Neut # (Auto) 11.8 x10^3/uL (2.2-4.8) H 03/04/20 06:14 Lymph # (Auto) 0.9 X10^3/uL (1.3-2.9) L 03/04/20 06:14 [place] # (Auto) 0.2 x10^3/uL (0.3-0.8) L 03/04/20 06:14 Eos # (Auto) 0.0 x10^3/uL (0.0-0.2) 03/04/20 06:14 Baso # (Auto) 0.0 X10^3/uL (0.0-0.1) 03/04/20 06:14 Absolute Nucleated RBC 0.0 /100WBC 03/04/20 06:14 Total Counted 100 03/04/20 06:14 Neutrophils % (Manual) 90 % (39-76) H 03/04/20 06:14 Lymphocytes % (Manual) 8 % (13-43) L 03/04/20 06:14 Monocytes % (Manual) 2 % (4-9) L 03/04/20 06:14 Plt Morphology Comment Normal (NORMAL) 03/04/20 06:14 RBC Morphology Normal (NORMAL) 03/04/20 06:14 ESR 7 MM/HOUR (0-20) 03/04/20 06:14 Sodium 140 mmol/L (136-145) 03/04/20 06:14 Corrected Sodium 142 mmol/L (136-145) 03/04/20 06:14 Potassium 3.6 mmol/L (3.5-5.1) 03/04/20 06:14 Chloride 106 mmol/L (98-107) 03/04/20 06:14 Carbon Dioxide 27.1 mmol/L (21-32) 03/04/20 06:14 BUN 7 mg/dL (7-18) 03/04/20 06:14 Creatinine 0.71 mg/dL (0.55-1.02) 03/04/20 06:14 Est GFR (MDRD) Af Amer > 60 (>60) 03/04/20 06:14 Est GFR (MDRD) Non-Af > 60 (>60) 03/04/20 06:14 Glucose 189 mg/dL (65-99) H 03/04/20 06:14 Calcium 8.7 mg/dL (8.5-10.1) 03/04/20 06:14 Corrected Calcium 9.8 mg/dL (8.5-10.1) 03/04/20 06:14 Total Bilirubin 0.10 mg/dL (0.2-1.0) L 03/04/20 06:14 AST 10 Units/L (15-37) L 03/04/20 06:14 ALT 23 Units/L (12-78) 03/04/20 06:14 Alkaline Phosphatase 56 Units/L (46-116) 03/04/20 06:14 C-Reactive Protein 1.60 mg/L (0-3.0) 03/04/20 06:14 Total Protein 5.7 g/dL (6.4-8.2) L 03/04/20 06:14 Albumin 2.6 g/dL (3.4-5.0) L 03/04/20 06:14 Globulin 3.1 g/dL (2.5-4.5) 03/04/20 06:14 Albumin/Globulin Ratio 0.8 Ratio (1.1-2.1) L 03/04/20 06:14 Amylase 23 Units/L (25-115) L 03/01/20 09:42 Lipase 71 Units/L (73-393) L 03/01/20 09:42 HCG, Qual Negative <10 mIU/mL 03/01/20 09:42 Specimen Type Clean catch urine 03/01/20 09:42 Urine Color Dark yellow (YELLOW) 03/01/20 09:42 Urine Appearance Slightly hazy (CLEAR) 03/01/20 09:42 Urine pH 5.0 (5.0 - 8.0) 03/01/20 09:42 Ur Specific [place] 1.025 (1.000-1.030) 03/01/20 09:42 Urine Protein 2+ (NEGATIVE) 03/01/20 09:42 Urine Glucose (UA) Negative (NEGATIVE) 03/01/20 09:42 Urine Ketones 3+ (NEGATIVE) 03/01/20 09:42 Urine Occult Blood Negative (NEGATIVE) 03/01/20 09:42 Urine Nitrite Negative (NEGATIVE) 03/01/20 09:42 Urine Bilirubin 1+ (NEGATIVE) 03/01/20 09:42 Urine Urobilinogen 2+ (NORMAL) 03/01/20 09:42 Ur Leukocyte Esterase 1+ (NEGATIVE) 03/01/20 09:42 Urine RBC 0-2 /HPF (0-3) 03/01/20 09:42 Urine WBC 0-2 /HPF (0-5) 03/01/20 09:42 Ur Squamous Epith Cells Many /HPF (NEGATIVE) 03/01/20 09:42 Amorphous Sediment 1+ /HPF (NEGATIVE) 03/01/20 09:42 Urine Bacteria Trace /HPF (NEGATIVE) 03/01/20 09:42 Urine Mucus Few /HPF (NEGATIVE) 03/01/20 09:42 Ur Culture Indicated? No/not indicated 03/01/20 09:42 SARS-CoV-2 (PCR) Negative (NEGATIVE) 03/01/20 13:17 Plan (1) Crohn's colitis: Status: Acute Plan: Antibiotics, Solumedrol Q8H, pain control Surgery consulted, follow up recs. Advance diet as tolerated
[2020-03-04] MEDS ORDERED: MAGNESIUM SULFATE 1 GRAM/100 mL PREMIX 1 GM/100 ML BAG IV PRN (19:28)
[2020-03-04] MEDS ORDERED: POTASSIUM CHL 60 MEQ/NS 0.45% 500 ML IV PRN (19:28)
[2020-03-04] MEDS ORDERED: K-DUR TAB 20 MEQ PO PRN (19:28)
[2020-03-04] MEDS ORDERED: POTASSIUM CHL 40 MEQ/NS 0.45% 500 ML IV PRN (19:28)
[2020-03-04] MEDS ORDERED: KLOR-CON PO PRN (19:28)
[2020-03-04] MEDS ORDERED: K-RIDER 10 MEQ/NS 100 ML 10 MEQ/100 ML BAG IV PRN (19:28)
[2020-03-04] MEDS ORDERED: MICRO K EXTEN CAP 10 MEQ PO PRN (19:28)
[2020-03-04] MEDS ORDERED: POTASSIUM CHLORIDE LIQ 20 MEQ UDC PO PRN (19:28)
[2020-03-05] MEDS: ZOFRAN INJ 4 MG VIAL IVP SCH (03:16)
[2020-03-05] MEDS: D5 1/2 NS 1000 ML 1,000 ML IV SCH (03:16)
[2020-03-05] MEDS: FLAGYL IV PREMIX 500 MG BAG 500 MG/100 ML BAG IV SCH ×2 (03:16→10:00)
[2020-03-05] MEDS: DILAUDID INJ IVP PRN (05:42)
[2020-03-05] MEDS: SOLU-Medrol 40 MG VIAL IVP SCH (05:43)
[2020-03-05 06:20] LABS: BASOPHILS % (AUTO) 0.1 % (0.2-1.0); HEMATOCRIT 33.7 % (36.0-47.0); HEMOGLOBIN 11.5 g/dL (12.0-16.0); LYMPHOCYTES # (AUTO) 1.1 X10^3/uL (1.3-2.9); LYMPHOCYTES % (AUTO) 8.6 % (21.0-51.0); MEAN CORPUSCULAR HGB CONC 34.1 g/dL (33.0-35.0); MEAN PLATELET VOLUME 7.3 fL (7.4-11.0); MONOCYTES # (AUTO) 0.4 x10^3/uL (0.3-0.8); MONOCYTES % (AUTO) 2.7 % (0.0-13.0); NEUTROPHILS # (AUTO) 11.5 x10^3/uL (2.2-4.8); NEUTROPHILS % (AUTO) 88.6 % (42.0-75.0); PLATELET COUNT 413 X10^3/uL (150.0-450.0); RED BLOOD COUNT 3.96 X10^6/uL (3.5-5.4); RED CELL DISTRIBUTION WIDTH 13.2 % (11.6-16.5); WHITE BLOOD COUNT 12.9 X10^3/uL (3.6-10.0)
[2020-03-05 06:45] LABS: ALANINE AMINOTRANSFERASE 25 Units/L (12-78); ALBUMIN 2.6 g/dL (3.4-5.0); ALKALINE PHOSPHATASE 58 Units/L (46-116); ASPARTATE AMINO TRANSFERASE 9 Units/L (15-37); BLOOD UREA NITROGEN 8 mg/dL (7-18); CALCIUM 8.6 mg/dL (8.5-10.1); CARBON DIOXIDE 26.2 mmol/L (21-32); CHLORIDE 105 mmol/L (98-107); COR CA(FOR HYPOALB) 9.7 mg/dL (8.5-10.1); COR NA(FOR HYPERGLY) 142 mmol/L (136-145); CREATININE 0.75 mg/dL (0.55-1.02); MAGNESIUM 1.9 mg/dL (1.7-2.9); SODIUM 140 mmol/L (136-145); TOTAL PROTEIN 5.8 g/dL (6.4-8.2); eGFR NON BLACK RACES > 60 (>60)
[2020-03-05 08:18] VITALS: BP 147/94
--- NOTE | 2020-03-05 08:19 | W.DIS.FURT ---
Summary of Discharge Discharge Summary of Date Date of Exam: 03/05/20 Admission Date Date of Admission: 03/01/20 Admission Diagnosis Hospital Course: Pt is a 29 y/o f pmhx Crohn's disease admitted for Crohn's colitis flare up. 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 Her hospital treatment course includes: D5 1/2 NS@150ml/h, Solumedrol 80mg q8h, Abx:Ciprofloxacin + Flagyl, Dilauded, Zofran prn. Pt was placed NPO initially and then was able to gradually advance diet. Labs/imaging: Wbc 12.9, Hgb 11.5, Plt 413, Na 140, K 3.8, Cr 0.75, Glucose 167, Leukocytosis likely steroid induced, pt had remained afebrile. Surgery-Dr Yeung consulted. Pt was discharged in stable condition. Rx Cipro+Flagyl, Prednisone for 5 days. She re cently received mesalamine at her home that was rx by GI, instructed to start when she gets home and follow up with surgery and GI-Dr Clay. Vital Signs: Vital Signs (72 hours) 03/02/20 11:36 03/02/20 11:40 03/02/20 12:06 Temperature 98.3 F Pulse Rate [Right Radial] 60 Respiratory Rate 18 18 18 Blood Pressure [Left Arm] Blood Pressure [Right Arm] 97/52 O2 Sat by Pulse Oximetry 97 03/02/20 16:00 03/02/20 20:00 03/02/20 21:41 Temperature 97.6 F 97.9 F Pulse Rate [Right Radial] 56 L 63 Respiratory Rate 18 18 20 Blood Pressure [Left Arm] 111/59 Blood Pressure [Right Arm] 116/73 O2 Sat by Pulse Oximetry 98 95 03/02/20 22:11 03/03/20 00:00 03/03/20 03:17 Temperature 98.5 F Pulse Rate [Right Radial] 58 L Respiratory Rate 20 18 18 Blood Pressure [Left Arm] 104/59 Blood Pressure [Right Arm] O2 Sat by Pulse Oximetry 96 03/03/20 03:47 03/03/20 04:00 03/03/20 08:00 Temperature 97.5 F L 98.0 F Pulse Rate [Right Radial] 72 90 Respiratory Rate 18 18 18 Blood Pressure [Left Arm] 104/58 107/71 Blood Pressure [Right Arm] O2 Sat by Pulse Oximetry 96 96 03/03/20 12:00 03/03/20 16:00 03/03/20 17:03 Temperature 98.0 F 98.4 F Pulse Rate [Right Radial] 55 L 75 Respiratory Rate 18 20 18 Blood Pressure [Left Arm] 90/62 103/55 Blood Pressure [Right Arm] O2 Sat by Pulse Oximetry 98 97 03/03/20 17:33 03/03/20 20:00 03/04/20 00:00 Temperature 97.5 F L 97.8 F Pulse Rate [Right Radial] 65 61 Respiratory Rate 18 18 16 Blood Pressure [Left Arm] 127/69 118/66 Blood Pressure [Right Arm] O2 Sat by Pulse Oximetry 93 L 97 03/04/20 04:00 03/04/20 04:01 03/04/20 04:31 Temperature 97.9 F Pulse Rate [Right Radial] 50 L Respiratory Rate 14 18 16 Blood Pressure [Left Arm] 118/66 Blood Pressure [Right Arm] O2 Sat by Pulse Oximetry 03/04/20 08:00 03/04/20 12:00 03/04/20 16:00 Temperature 98.0 F 97.9 F 97.9 F Pulse Rate [Right Radial] 58 L 61 59 L Respiratory Rate 18 20 18 Blood Pressure [Left Arm] 120/77 116/73 129/88 Blood Pressure [Right Arm] O2 Sat by Pulse Oximetry 96 97 96 03/04/20 19:49 03/04/20 21:05 03/04/20 21:35 Temperature 97.5 F L Pulse Rate [Right Radial] 62 Respiratory Rate 18 20 20 Blood Pressure [Left Arm] 123/70 Blood Pressure [Right Arm] O2 Sat by Pulse Oximetry 94 L 03/05/20 00:00 03/05/20 04:00 03/05/20 05:42 Temperature 97.8 F 98.0 F Pulse Rate [Right Radial] 51 L 55 L Respiratory Rate 16 20 20 Blood Pressure [Left Arm] 124/74 131/77 Blood Pressure [Right Arm] O2 Sat by Pulse Oximetry 94 L 95 03/05/20 06:12 03/05/20 08:00 Temperature 98.1 F Pulse Rate [Right Radial] 55 L Respiratory Rate 20 20 Blood Pressure [Left Arm] 147/94 Blood Pressure [Right Arm] O2 Sat by Pulse Oximetry 96 Labs: Laboratory Last Values WBC 12.9 X10^3/uL (3.6-10.0) H 03/05/20 05:51 RBC 3.96 X10^6/uL (3.5-5.4) 03/05/20 05:51 Hgb 11.5 g/dL (12.0-16.0) L 03/05/20 05:51 Hct 33.7 % (36.0-47.0) L 03/05/20 05:51 MCV 85.0 fL (80.0-100.0) 03/05/20 05:51 MCH 29.0 pg (27.0-34.0) 03/05/20 05:51 MCHC 34.1 g/dL (33.0-35.0) 03/05/20 05:51 RDW 13.2 % (11.6-16.5) 03/05/20 05:51 Plt Count 413 X10^3/uL (150.0-450.0) 03/05/20 05:51 Plt Count Comment Adequate (ADEQUATE) 03/04/20 06:14 MPV 7.3 fL (7.4-11.0) L 03/05/20 05:51 Neut % (Auto) 88.6 % (42.0-75.0) H 03/05/20 05:51 Lymph % (Auto) 8.6 % (21.0-51.0) L 03/05/20 05:51 [place] % (Auto) 2.7 % (0.0-13.0) 03/05/20 05:51 Eos % (Auto) 0.0 % (0.9-2.9) L 03/05/20 05:51 Baso % (Auto) 0.1 % (0.2-1.0) L 03/05/20 05:51 Neut # (Auto) 11.5 x10^3/uL (2.2-4.8) H 03/05/20 05:51 Lymph # (Auto) 1.1 X10^3/uL (1.3-2.9) L 03/05/20 05:51 [place] # (Auto) 0.4 x10^3/uL (0.3-0.8) 03/05/20 05:51 Eos # (Auto) 0.0 x10^3/uL (0.0-0.2) 03/05/20 05:51 Baso # (Auto) 0.0 X10^3/uL (0.0-0.1) 03/05/20 05:51 Absolute Nucleated RBC 0.0 /100WBC 03/05/20 05:51 Total Counted 100 03/04/20 06:14 Neutrophils % (Manual) 90 % (39-76) H 03/04/20 06:14 Lymphocytes % (Manual) 8 % (13-43) L 03/04/20 06:14 Monocytes % (Manual) 2 % (4-9) L 03/04/20 06:14 Plt Morphology Comment Normal (NORMAL) 03/04/20 06:14 RBC Morphology Normal (NORMAL) 03/04/20 06:14 ESR 7 MM/HOUR (0-20) 03/04/20 06:14 Sodium 140 mmol/L (136-145) 03/05/20 05:51 Corrected Sodium 142 mmol/L (136-145) 03/05/20 05:51 Potassium 3.8 mmol/L (3.5-5.1) 03/05/20 05:51 Chloride 105 mmol/L (98-107) 03/05/20 05:51 Carbon Dioxide 26.2 mmol/L (21-32) 03/05/20 05:51 BUN 8 mg/dL (7-18) 03/05/20 05:51 Creatinine 0.75 mg/dL (0.55-1.02) 03/05/20 05:51 Est GFR (MDRD) Af Amer > 60 (>60) 03/05/20 05:51 Est GFR (MDRD) Non-Af > 60 (>60) 03/05/20 05:51 Glucose 167 mg/dL (65-99) H 03/05/20 05:51 Calcium 8.6 mg/dL (8.5-10.1) 03/05/20 05:51 Corrected Calcium 9.7 mg/dL (8.5-10.1) 03/05/20 05:51 Magnesium 1.9 mg/dL (1.7-2.9) 03/05/20 05:51 Total Bilirubin 0.10 mg/dL (0.2-1.0) L 03/05/20 05:51 AST 9 Units/L (15-37) L 03/05/20 05:51 ALT 25 Units/L (12-78) 03/05/20 05:51 Alkaline Phosphatase 58 Units/L (46-116) 03/05/20 05:51 C-Reactive Protein 1.60 mg/L (0-3.0) 03/04/20 06:14 Total Protein 5.8 g/dL (6.4-8.2) L 03/05/20 05:51 Albumin 2.6 g/dL (3.4-5.0) L 03/05/20 05:51 Globulin 3.2 g/dL (2.5-4.5) 03/05/20 05:51 Albumin/Globulin Ratio 0.8 Ratio (1.1-2.1) L 03/05/20 05:51 Amylase 23 Units/L (25-115) L 03/01/20 09:42 Lipase 71 Units/L (73-393) L 03/01/20 09:42 HCG, Qual Negative <10 mIU/mL 03/01/20 09:42 Specimen Type Clean catch urine 03/01/20 09:42 Urine Color Dark yellow (YELLOW) 03/01/20 09:42 Urine Appearance Slightly hazy (CLEAR) 03/01/20 09:42 Urine pH 5.0 (5.0 - 8.0) 03/01/20 09:42 Ur Specific [place] 1.025 (1.000-1.030) 03/01/20 09:42 Urine Protein 2+ (NEGATIVE) 03/01/20 09:42 Urine Glucose (UA) Negative (NEGATIVE) 03/01/20 09:42 Urine Ketones 3+ (NEGATIVE) 03/01/20 09:42 Urine Occult Blood Negative (NEGATIVE) 03/01/20 09:42 Urine Nitrite Negative (NEGATIVE) 03/01/20 09:42 Urine Bilirubin 1+ (NEGATIVE) 03/01/20 09:42 Urine Urobilinogen 2+ (NORMAL) 03/01/20 09:42 Ur Leukocyte Esterase 1+ (NEGATIVE) 03/01/20 09:42 Urine RBC 0-2 /HPF (0-3) 03/01/20 09:42 Urine WBC 0-2 /HPF (0-5) 03/01/20 09:42 Ur Squamous Epith Cells Many /HPF (NEGATIVE) 03/01/20 09:42 Amorphous Sediment 1+ /HPF (NEGATIVE) 03/01/20 09:42 Urine Bacteria Trace /HPF (NEGATIVE) 03/01/20 09:42 Urine Mucus Few /HPF (NEGATIVE) 03/01/20 09:42 Ur Culture Indicated? No/not indicated 03/01/20 09:42 SARS-CoV-2 (PCR) Negative (NEGATIVE) 03/01/20 13:17 Reason For Visit: BOWEL OBSTRUCTION, CROHNS DISEASE Discharge Date Discharge Date: 03/05/20 Discharge Diagnosis All Active Problems (Updated 03/03/20 @ 15:37 by Deepali Pedraza) Crohn's disease (Acute) Crohn's colitis (Acute) Toothache (Acute) Abdominal pain (Acute) Plan of Treatment: Continue with present treatment and follow up plan. Pt is to keep follow up appointment as instructed and take medications as ordered. Discharge Medications Discharge Medications: No Known Drug Allergies Allergy (Verified 12/26/19 11:41) New Prescriptions ciprofloxacin HCl [Cipro] 500 mg PO BID 5 Days #10 tab 03/05/20 [Rx] famotidine 20 mg PO BID PRN #60 tab 03/05/20 [Rx] metronidazole [Flagyl] 500 mg PO Q8H 5 Days #15 tab 03/05/20 [Rx] ondansetron HCl [Zofran] 4 mg PO Q8H PRN #30 tab 03/05/20 [Rx] prednisone 10 mg PO BID 5 Days #10 tab 03/05/20 [Rx] tramadol [Ultram] 50 mg PO TID PRN 10 Days #30 tab MDD 150 03/05/20 [Rx] Discharge Disposition Discharge Disposition: Home Discharge Condition: Stable Discharge Plan Discharge Plan Hospital Course: Pt is a 29 y/o f pmhx Crohn's disease admitted for Crohn's colitis flare up. 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 Her h ospital treatment course includes: D5 1/2 NS@150ml/h, Solumedrol 80mg q8h, Abx:Ciprofloxacin + Flagyl, Dilauded, Zofran prn. Pt was placed NPO initially and then was able to gradually advance diet. Labs/imaging: Wbc 12.9, Hgb 11.5, Plt 413, Na 140, K 3.8, Cr 0.75, Glucose 167, Leukocytosis likely steroid induced, pt had remained afebrile. Surgery-Dr Yeung consulted. Pt was discharged in stable condition. Rx Cipro+Flagyl, Prednisone for 5 days. She recently received mesalamine at her home that was rx by GI, instructed to start when she gets home and follow up with surgery and GI-Dr Clay. Patient Disposition: 01 , SELF-CARE Condition: Stable Health Concerns: Post Hospitalization: new medications and changes needed to prevent readmission or further decline. Pt educated and given instructions on all concerns. Care Plan Goals: Problem: Infection Goal: Temperature within normal limits. Resolved infection. Instructions: Follow provided instructions. Follow up with primary physician as directed. Contact primary care physician or report to the closest Emergency Room if condition worsens. Plan of Treatment: Continue with present treatment and follow up plan. Pt is to keep follow up appointment as instructed and take medications as ordered. Prescriptions: New famotidine 20 mg Tablet 20 mg PO BID PRNQty: 60 RF: 0 ciprofloxacin HCl [Cipro] 500 mg tablet 500 mg PO BID 5 Days Qty: 10 RF: 0 metronidazole [Flagyl] 500 mg tablet 500 mg PO Q8H 5 Days Qty: 15 RF: 0 ondansetron HCl [Zofran] 4 mg tablet 4 mg PO Q8H PRNQty: 30 RF: 0 prednisone 10 mg tablet 10 mg PO BID 5 Days Qty: 10 RF: 0 Continued tramadol [Ultram] 50 mg tablet 50 mg PO TID MDD 150 PRN10 Days Qty: 30 RF: 0 Discontinued prednisone 10 mg tablets,dose pack See Rx Instructions .ROUTE .COMPLEX Qty: 48 RF: 0 tramadol [Ultram] 50 mg tablet 50 mg PO TID MDD 150 PRNQty: 14 RF: 0 Orders to Discharge Patient Discharge Orders: Discharge (Routine); Ordered 03/05/20 Ordered By: Diallo Lyman Follow ups/Referrals Follow ups/Referrals: GAVINO CLAY [STAFF PHYSICIAN] - 03/23/20 2:10 pm RADHA KRISHNAMURTHY [REFERRING] - 03/10/20 11:30 am ([facility] ) Instructions Instructions: Dehydration, Adult, [id number], Abdominal Pain, Adult, Swax-gu-Tone, Ulcerative Colitis, Adult, Crohn's Disease Stand Alone Forms: Excuse From Work or School, Precautions for COVID19, Patient Portal, Social Distancing
[2020-03-05] MEDS: CIPRO IV 400 MG PREMIX* 400 MG/200 ML IV.SOLN. IV SCH (08:30)
== END 2020-03-05 11:50 | disposition home or self-care (01) ==
LOC: MED/SURG 09:14 → ER 09:14 → MED/SURG 16:10
PROVIDERS: ADMIT Internal Medicine; ATTEND Internal Medicine
DX: K21.9 Gastro-esophageal reflux disease without esophagitis; R10.84 Generalized abdominal pain; K50.918 Crohn's disease, unspecified, with other complication; R79.82 Elevated C-reactive protein (CRP); R73.09 Other abnormal glucose; Z20.828 Contact with and (suspected) exposure to other viral communicable diseases; R11.2 Nausea with vomiting, unspecified

== ENCOUNTER 2020-03-13 06:40 | Inpatient (IN) ==
[2020-03-13 06:48] VITALS: BMI 27.3
[2020-03-13] MEDS ORDERED: DILAUDID INJ IVP STA ×2 (06:58→07:54)
[2020-03-13] MEDS ORDERED: ZOFRAN INJ 4 MG VIAL IVP ONE ×3 (06:58→10:36)
[2020-03-13] MEDS ORDERED: NS 1000 ML 1,000 ML ONE (07:04)
[2020-03-13] MEDS ORDERED: DILAUDID INJ ONE ×2 (07:04→08:01)
[2020-03-13] MEDS ORDERED: ZOFRAN INJ 4 MG VIAL ONE ×2 (07:04→10:37)
--- NOTE | 2020-03-13 07:21 | RAD ---
HISTORYABDOMINAL PAIN, N/V/D, HX. CROHN'SSTUDYACUTE ABDOMEN SERIESCOMPARISONNoneTECHNIQUEThree view acute abdomen series.FINDINGSThe cardiac and mediastinal contours are within normal limits. The lungs are clear without focal consolidation or segmental collapse. No pleural effusion or pneumothorax.Nonobstructive bowel gas pattern. No definite pneumatosis, free air or portal venous gas. Prior appendectomy.IMPRESSIONNonobstructive bowel gas pattern.Electronically signed by: Etienne Mendieta (Mar 13, 2020 07:19:57)
[2020-03-13] MEDS: NS 1000 ML 1,000 ML IV SCH ×2 (07:22→16:34)
[2020-03-13 07:27] LABS: BASOPHILS # (AUTO) 0.1 X10^3/uL (0.0-0.1); HEMOGLOBIN 15.1 g/dL (12.0-16.0); MONOCYTES # (AUTO) 1.8 x10^3/uL (0.3-0.8); MONOCYTES % (AUTO) 4.9 % (0.0-13.0)
[2020-03-13 07:31] LABS: BASOPHILS % (AUTO) 0.2 % (0.2-1.0); HEMATOCRIT 46.1 % (36.0-47.0); LYMPHOCYTES # (AUTO) 1.4 X10^3/uL (1.3-2.9); LYMPHOCYTES % (AUTO) 3.9 % (21.0-51.0); MEAN CORPUSCULAR HEMOGLOBIN 28.7 pg (27.0-34.0); MEAN CORPUSCULAR HGB CONC 32.9 g/dL (33.0-35.0); MEAN CORPUSCULAR VOLUME 87.4 fL (80.0-100.0); MEAN PLATELET VOLUME 7.1 fL (7.4-11.0); NEUTROPHILS # (AUTO) 33.8 x10^3/uL (2.2-4.8); PLATELET COUNT 613 X10^3/uL (150.0-450.0); RED BLOOD COUNT 5.27 X10^6/uL (3.5-5.4)
[2020-03-13 07:37] LABS: ALANINE AMINOTRANSFERASE 43 Units/L (12-78); ALBUMIN 3.6 g/dL (3.4-5.0); ALKALINE PHOSPHATASE 63 Units/L (46-116); ASPARTATE AMINO TRANSFERASE 18 Units/L (15-37); BLOOD UREA NITROGEN 11 mg/dL (7-18); CALCIUM 9.2 mg/dL (8.5-10.1); CARBON DIOXIDE 25.6 mmol/L (21-32); CHLORIDE 103 mmol/L (98-107); COR NA(FOR HYPERGLY) 141 mmol/L (136-145); CREATININE 1.08 mg/dL (0.55-1.02); SODIUM 139 mmol/L (136-145); TOTAL PROTEIN 7.4 g/dL (6.4-8.2); eGFR NON BLACK RACES > 60 (>60)
[2020-03-13 07:41] LABS: WHITE BLOOD COUNT 37.1 X10^3/uL (3.6-10.0)
[2020-03-13 07:42] LABS: BAND NEUTROPHILS % 1 % (0-10); PLATELET MORPHOLOGY COMMENT NORMAL (NORMAL)
[2020-03-13] MEDS ORDERED: ZOSYN VIAL 2.25 GRAMS 2.25 G in NS 100 ML IV + SPIKE MINIBAG* 100 ML IV STA (07:42)
--- NOTE | 2020-03-13 07:46 | ED.ABDFE ---
HPI Time Seen Time Seen by Provider: 03/13/20 06:57 PCP Primary Care Physician: selma alcantara HPI Comment HPI Comment: Sudden onset of severe abd pain as below; persistent diarrhea w/o blood as well as n/v; discharged 03/05 after a similar episode d/t Crohn's flare. Complaint Chief Complaint:: PT C/O SUDDEN ONSET OF SEVERE PAIN INTO LOWER ABDOMEN SINCE LAST NIGHT. PT ALSO C/O DIARRHEA AND NAUSEA WITH VOMITTING. COVID-19 Coronavirus risk:travel/contact w/high risk person: No Has patient experienced Coronavirus symptoms: No Source History Provided: Patient Mode of arrival Mode of Arrival: Ambulatory Timing Onset of Chief Complaint: 03/13/20 PMH PMH Past Medical History: Yes Past Medical History: GERD Past Medical History Comment: CROHNS Past Surgical History: Yes Surgical History: Appendectomy and Family History History of Family Medical Conditions: No Family Medical History: Coronary Artery Disease and Hypertension Social History Does patient currently use any type of tobacco product: No Have you used tobacco products in the last 12 months: No Type of Tobacco Use: None Does any household member use tobacco: No Alcohol Use: None Do you use any recreational Drugs:: No Lives With: Family Lives Where: Home Travel Risk Coronavirus risk:travel/contact w/high risk person: No Has patient experienced Coronavirus symptoms: No Infectious screening In the last 2 months have you had wt loss of >10#?: NO Have you had fever, night sweats or hemotysis?: No Have you traveled outside the country in the last 6 months?: No Isolation: Standard ROS Review of Systems Eyes: No Symptoms Reported ENTM: No Symptoms Reported Respiratoy: No Symptoms Reported Cardiovascular: No Symptoms Reported Genitourinary: No Symptoms Reported Neurological: No Symptoms Reported Musculoskeletal: No Symptoms Reported Integumentary: No Symptoms Reported Hematologic/Lymphatic: No Symptoms Reported Endocrine: No Symptoms Reported PE Vital Signs Vitals: Temperature 98.8 F Pulse Rate 124 Respiratory Rate 18 Blood Pressure [Left Arm] 147/94 Blood Pressure 124/68 O2 Sat by Pulse Oximetry 97 General Limitations: Physical Limitation General Appearance: Alert, Anxious and Other (in obvious pain) Head Head Exam: Normal Inspection Eyes Eye exam: Normal Appearance ENT ENT Exam: Normal Exam Neck Neck Exam: Normal Inspection Chest Chest Inspection: Normal Inspection Respiratory Respiratory Exam: Normal Lung Sounds Bilat Cardiovascular Cardiovascular Exam: Regular Rate and Normal Rhythm Abdominal Exam Abdominal Exam: Normal Inspection, Tenderness and Guarding Abdominal Tenderness: Diffuse and Severe Back Back Exam: Normal Inspection Extremeties Extremities Exam: Normal Inspection Neurologic Neurological Exam: Alert and Oriented X3 Skin Skin Exam: Warm, Dry and Intact MDM Differential Diagnosis Differential Diagnosis- Considerations may include:: Gastritus/PUD, Gastroenteritis, Inflammatory BD and Ischemic Bowel COURSE Reevaluation 1st: Improved (lying flat in bed; "pain's coming back a little but much better") ROR Labs Reviewed Result Diagrams: 03/16/20 04:21 03/16/20 04:21 Laboratory: WBC 37.1 X10^3/uL (3.6-10.0) H* 03/13/20 07:15 RBC 5.27 X10^6/uL (3.5-5.4) 03/13/20 07:15 Hgb 15.1 g/dL (12.0-16.0) 03/13/20 07:15 Hct 46.1 % (36.0-47.0) 03/13/20 07:15 MCV 87.4 fL (80.0-100.0) 03/13/20 07:15 MCH 28.7 pg (27.0-34.0) 03/13/20 07:15 MCHC 32.9 g/dL (33.0-35.0) L 03/13/20 07:15 RDW 14.0 % (11.6-16.5) 03/13/20 07:15 Plt Count 613 X10^3/uL (150.0-450.0) H 03/13/20 07:15 Plt Count Comment Adequate (ADEQUATE) 03/13/20 07:15 MPV 7.1 fL (7.4-11.0) L 03/13/20 07:15 Neut % (Auto) 91.0 % (42.0-75.0) H 03/13/20 07:15 Lymph % (Auto) 3.9 % (21.0-51.0) L 03/13/20 07:15 [place] % (Auto) 4.9 % (0.0-13.0) 03/13/20 07:15 Eos % (Auto) 0.0 % (0.9-2.9) L 03/13/20 07:15 Baso % (Auto) 0.2 % (0.2-1.0) 03/13/20 07:15 Neut # (Auto) 33.8 x10^3/uL (2.2-4.8) H 03/13/20 07:15 Lymph # (Auto) 1.4 X10^3/uL (1.3-2.9) 03/13/20 07:15 [place] # (Auto) 1.8 x10^3/uL (0.3-0.8) H 03/13/20 07:15 Eos # (Auto) 0.0 x10^3/uL (0.0-0.2) 03/13/20 07:15 Baso # (Auto) 0.1 X10^3/uL (0.0-0.1) 03/13/20 07:15 Absolute Nucleated RBC 0.1 /100WBC 03/13/20 07:15 Total Counted 100 03/13/20 07:15 Neutrophils % (Manual) 89 % (39-76) H 03/13/20 07:15 Band Neutrophils % 1 % (0-10) 03/13/20 07:15 Lymphocytes % (Manual) 5 % (13-43) L 03/13/20 07:15 Monocytes % (Manual) 4 % (4-9) 03/13/20 07:15 Eosinophils % (Manual) 1 % (0-6) 03/13/20 07:15 Plt Morphology Comment Normal (NORMAL) 03/13/20 07:15 RBC Morphology Normal (NORMAL) 03/13/20 07:15 Sodium 139 mmol/L (136-145) 03/13/20 07:15 Corrected Sodium 141 mmol/L (136-145) 03/13/20 07:15 Potassium 4.5 mmol/L (3.5-5.1) 03/13/20 07:15 Chloride 103 mmol/L (98-107) 03/13/20 07:15 Carbon Dioxide 25.6 mmol/L (21-32) 03/13/20 07:15 BUN 11 mg/dL (7-18) 03/13/20 07:15 Creatinine 1.08 mg/dL (0.55-1.02) H 03/13/20 07:15 Est GFR (MDRD) Af Amer > 60 (>60) 03/13/20 07:15 Est GFR (MDRD) Non-Af > 60 (>60) 03/13/20 07:15 Glucose 163 mg/dL (65-99) H 03/13/20 07:15 Calcium 9.2 mg/dL (8.5-10.1) 03/13/20 07:15 Corrected Calcium TNP 03/13/20 07:15 Total Bilirubin 0.50 mg/dL (0.2-1.0) 03/13/20 07:15 AST 18 Units/L (15-37) 03/13/20 07:15 ALT 43 Units/L (12-78) 03/13/20 07:15 Alkaline Phosphatase 63 Units/L (46-116) 03/13/20 07:15 Total Protein 7.4 g/dL (6.4-8.2) 03/13/20 07:15 Albumin 3.6 g/dL (3.4-5.0) 03/13/20 07:15 Globulin 3.8 g/dL (2.5-4.5) 03/13/20 07:15 Albumin/Globulin Ratio 0.9 Ratio (1.1-2.1) L 03/13/20 07:15 HCG, Qual Negative <10 mIU/mL 03/13/20 07:15 SARS-CoV-2 (PCR) Cancelled 03/13/20 11:48 SARS CoV-2 RNA Rapid TYLER Negative (NEGATIVE) 03/13/20 11:48 XRAY XRAY Interpreted by: Radiologist X-ray Results: abd xr: Nonobstructive bowel gas pattern. Opioid Opioid Risk Tool Age (David box if 16-45): Yes History of Preadolescent Sexual Abuse: No Total: 1 Total Score Risk Category: Low Risk Copyright: Barry MELENDEZ predicting aberrant behaviors Diagnosis Discharge Problem: Perforation bowel Crohn's disease Qualifiers: Gastrointestinal tract location: small intestine Digestive disease complication type: with abscess Qualified Code(s): K50.014 - Crohn's disease of small intestine with abscess Instructions Instructions: Hand Washing, Sfiu-vx-Clki Antibiotic Medicine, Adult, Gfvy-rp-Ulaj Open Small Bowel Resection, Care After Colitis Pain Medicine Instructions Crohn's Disease Forms: Excuse From Work or School Precautions for COVID19 Patient Portal Social Distancing
--- NOTE | 2020-03-13 11:13 | CT ---
HISTORYABDOMINAL PAIN, N/V/D, ELEVATED WBC COUNT, HX. CROHNSSTUDYABDOMEN/PELVIS WITH CONCOMPARISONCT from 03/01/2020.TECHNIQUEMultiple axial images of the abdomen and pelvis were obtained from the lung bases to the pubic symphysis after the administration of IV contrast. Dose reduction techniques including Automated Exposure Control (AEC) and adjustment of mA and kV were utilized.FINDINGSLung bases demonstrate mild subsegmental atelectasis. The heart is normal in size. The liver, gallbladder, spleen, pancreas and adrenal glands appear benign. There is contrast excretion into the collecting system which limits evaluation for renal calculi. Subcentimeter left upper pole low attenuation renal lesion is likely a cyst. No hydronephrosis. There is mild nondependent gas in the urinary bladder. Uterus is present. There are few scattered colonic diverticula without evidence of diverticulitis. Appendectomy.There is a stricture measuring up to 3.1 cm in length of the terminal ileum image 18 series 6. There is upstream dilatation with dilated small bowel, and wall enhancement. Small bowel feces sign is present. For example, small bowel measures up to 2.7 cm AP on image 65 series 4. There is perforation with a collection of gas and phlegmon in the lower small bowel mesentery. This collection measures approximately 5.2 by knee 1.6 cm axial image 66 series 4. There is surrounding fat stranding in the lower abdomen and pelvis about these inflamed and dilated small bowel loops. Mild free fluidNormal caliber not atherosclerotic patent abdominal aorta. The portal vein is patent. No acute osseous abnormality.IMPRESSIONFindings of Crohn's disease. There is a short-segment stricture of the terminal ileum. Dilated proximal ileum with small bowel feces sign consistent with at least partial obstruction. The ileum has wall thickening and enhancement. There is ileal perforation with a collection in the small bowel mesentery containing gas and phlegmon. There is inflammatory fat stranding about the inflamed small bowel.Gas in the nondependent urinary bladder. Correlate for instrumentation. No fistulous connection is identified with small bowel. Differential includes cystitis.Electronically signed by: Etienne Mendieta (Mar 13, 2020 11:11:27)
[2020-03-13] MEDS ORDERED: ZOSYN VIAL 3.375 GRAMS 3.375 G in NS 100 ML IV + SPIKE MINIBAG* 100 ML IV ONE (11:27)
--- NOTE | 2020-03-13 11:32 | ED.ABDFE ---
HPI Time Seen Time Seen by Provider: 03/13/20 06:57 PCP Primary Care Physician: selma [facility] Complaint Chief Complaint:: PT C/O SUDDEN ONSET OF SEVERE PAIN INTO LOWER ABDOMEN SINCE LAST NIGHT. PT ALSO C/O DIARRHEA AND NAUSEA WITH VOMITTING. COVID-19 Coronavirus risk:travel/contact w/high risk person: No Has patient experienced Coronavirus symptoms: No Source History Provided: Patient Mode of arrival Mode of Arrival: Ambulatory Timing Onset of Chief Complaint: 03/13/20 PMH PMH Past Medical History: Yes Past Medical History: GERD Past Medical History Comment: CROHNS Past Surgical History: Yes Surgical History: Appendectomy and Family History History of Family Medical Conditions: No Family Medical History: Coronary Artery Disease and Hypertension Social History Does patient currently use any type of tobacco product: No Have you used tobacco products in the last 12 months: No Type of Tobacco Use: None Does any household member use tobacco: No Alcohol Use: None Do you use any recreational Drugs:: No Lives With: Family Lives Where: Home Travel Risk Coronavirus risk:travel/contact w/high risk person: No Has patient experienced Coronavirus symptoms: No Infectious screening In the last 2 months have you had wt loss of >10#?: NO Have you had fever, night sweats or hemotysis?: No Have you traveled outside the country in the last 6 months?: No Isolation: Standard PE Vital Signs Vitals: Temperature 98.8 F Pulse Rate 124 Respiratory Rate 18 Blood Pressure [Left Arm] 147/94 Blood Pressure 124/68 O2 Sat by Pulse Oximetry 97 COURSE Consultation Called: 11:30 Call Returned: 11:44 Consultation Comments: DR. Yeung came to see the patient. will take to Er for surgery. Dr Kim called and will admit and consult Gamal. Education/Counseling Education/Counseling: Patient Educated On: Treatment and Diagnosis ROR Labs Reviewed Result Diagrams: 03/13/20 07:15 03/13/20 07:15 Laboratory: WBC 37.1 X10^3/uL (3.6-10.0) H* 03/13/20 07:15 RBC 5.27 X10^6/uL (3.5-5.4) 03/13/20 07:15 Hgb 15.1 g/dL (12.0-16.0) 03/13/20 07:15 Hct 46.1 % (36.0-47.0) 03/13/20 07:15 MCV 87.4 fL (80.0-100.0) 03/13/20 07:15 MCH 28.7 pg (27.0-34.0) 03/13/20 07:15 MCHC 32.9 g/dL (33.0-35.0) L 03/13/20 07:15 RDW 14.0 % (11.6-16.5) 03/13/20 07:15 Plt Count 613 X10^3/uL (150.0-450.0) H 03/13/20 07:15 Plt Count Comment Adequate (ADEQUATE) 03/13/20 07:15 MPV 7.1 fL (7.4-11.0) L 03/13/20 07:15 Neut % (Auto) 91.0 % (42.0-75.0) H 03/13/20 07:15 Lymph % (Auto) 3.9 % (21.0-51.0) L 03/13/20 07:15 [place] % (Auto) 4.9 % (0.0-13.0) 03/13/20 07:15 Eos % (Auto) 0.0 % (0.9-2.9) L 03/13/20 07:15 Baso % (Auto) 0.2 % (0.2-1.0) 03/13/20 07:15 Neut # (Auto) 33.8 x10^3/uL (2.2-4.8) H 03/13/20 07:15 Lymph # (Auto) 1.4 X10^3/uL (1.3-2.9) 03/13/20 07:15 [place] # (Auto) 1.8 x10^3/uL (0.3-0.8) H 03/13/20 07:15 Eos # (Auto) 0.0 x10^3/uL (0.0-0.2) 03/13/20 07:15 Baso # (Auto) 0.1 X10^3/uL (0.0-0.1) 03/13/20 07:15 Absolute Nucleated RBC 0.1 /100WBC 03/13/20 07:15 Total Counted 100 03/13/20 07:15 Neutrophils % (Manual) 89 % (39-76) H 03/13/20 07:15 Band Neutrophils % 1 % (0-10) 03/13/20 07:15 Lymphocytes % (Manual) 5 % (13-43) L 03/13/20 07:15 Monocytes % (Manual) 4 % (4-9) 03/13/20 07:15 Eosinophils % (Manual) 1 % (0-6) 03/13/20 07:15 Plt Morphology Comment Normal (NORMAL) 03/13/20 07:15 RBC Morphology Normal (NORMAL) 03/13/20 07:15 Sodium 139 mmol/L (136-145) 03/13/20 07:15 Corrected Sodium 141 mmol/L (136-145) 03/13/20 07:15 Potassium 4.5 mmol/L (3.5-5.1) 03/13/20 07:15 Chloride 103 mmol/L (98-107) 03/13/20 07:15 Carbon Dioxide 25.6 mmol/L (21-32) 03/13/20 07:15 BUN 11 mg/dL (7-18) 03/13/20 07:15 Creatinine 1.08 mg/dL (0.55-1.02) H 03/13/20 07:15 Est GFR (MDRD) Af Amer > 60 (>60) 03/13/20 07:15 Est GFR (MDRD) Non-Af > 60 (>60) 03/13/20 07:15 Glucose 163 mg/dL (65-99) H 03/13/20 07:15 Calcium 9.2 mg/dL (8.5-10.1) 03/13/20 07:15 Corrected Calcium TNP 03/13/20 07:15 Total Bilirubin 0.50 mg/dL (0.2-1.0) 03/13/20 07:15 AST 18 Units/L (15-37) 03/13/20 07:15 ALT 43 Units/L (12-78) 03/13/20 07:15 Alkaline Phosphatase 63 Units/L (46-116) 03/13/20 07:15 Total Protein 7.4 g/dL (6.4-8.2) 03/13/20 07:15 Albumin 3.6 g/dL (3.4-5.0) 03/13/20 07:15 Globulin 3.8 g/dL (2.5-4.5) 03/13/20 07:15 Albumin/Globulin Ratio 0.9 Ratio (1.1-2.1) L 03/13/20 07:15 HCG, Qual Negative <10 mIU/mL 03/13/20 07:15 SARS-CoV-2 (PCR) Cancelled 03/13/20 11:48 SARS CoV-2 RNA Rapid TYLER Negative (NEGATIVE) 03/13/20 11:48 XRAY XRAY Interpreted by: Radiologist X-ray Results: CT abdo/pelvis: stricture diatal ileum, ileal perforaation with collection in the small bowel mesentery containg gas and phlegmon. At least partial obstruction. Ileal perforation Opioid Opioid Risk Tool Age (David box if 16-45): Yes History of Preadolescent Sexual Abuse: No Total: 1 Total Score Risk Category: Low Risk Copyright: Barry MELENDEZ predicting aberrant behaviors Diagnosis Discharge Problem: Perforation bowel Crohn's disease Qualifiers: Gastrointestinal tract location: small intestine Digestive disease complication type: with abscess Qualified Code(s): K50.014 - Crohn's disease of small intestine with abscess
[2020-03-13] MEDS ORDERED: PROTONIX TAB 40 MG PO ONE (11:48)
[2020-03-13] MEDS ORDERED: MORPHINE SULFATE INJ 2 MG INJ IVP PRN (11:57)
[2020-03-13] MEDS ORDERED: PROTONIX INJ 40 MG VIAL IVP ONE (11:58)
[2020-03-13] MEDS ORDERED: NS 1000 ML 1,000 ML IV SCH ×3 (12:00→16:00)
[2020-03-13] MEDS ORDERED: PROTONIX INJ 40 MG VIAL ONE (12:00)
[2020-03-13] MEDS ORDERED: LR 1000 ML IV 1,000 ML IV ONE (13:07)
[2020-03-13] MEDS ORDERED: DIPRIVAN 1 GM ONE (13:08)
[2020-03-13] MEDS ORDERED: QUELICIN (OR ANECTINE) ONE (13:08)
[2020-03-13] MEDS ORDERED: NORCURON INJ 10 MG VIAL ONE (13:08)
[2020-03-13] MEDS ORDERED: ULTANE GAS IN ONE (13:08)
[2020-03-13 13:09] LABS: SERUM PREGNANCY TEST, QUAL NEGATIVE <10 mIU/mL
[2020-03-13 13:50] LABS: BILIRUBIN,URINE NEGATIVE (NEGATIVE); BLOOD/HEMOGLOBIN,URINE NEGATIVE (NEGATIVE); GLUCOSE, URINE NEGATIVE (NEGATIVE); KETONES,URINE NEGATIVE (NEGATIVE); LEUKOCYTE ESTERASE ,URINE NEGATIVE (NEGATIVE); NITRITES,URINE NEGATIVE (NEGATIVE); PROTEIN,URINE 1+ (NEGATIVE); UROBILINOGEN,URINE NORMAL (NORMAL)
[2020-03-13] MEDS ORDERED: OFIRMEV IV 1000 MG VIAL 1,000 MG/100 ML VIAL IV ONE (14:00)
[2020-03-13 14:14] LABS: APPEARANCE,URINE CLEAR (CLEAR); COLOR,URINE YELLOW (YELLOW)
[2020-03-13 14:15] LABS: BACTERIA,URINE NEGATIVE /HPF (NEGATIVE); RBC,URINE 0-2 /HPF (0-3); SQUAMOUS EPITHELIAL CELL,UR NEGATIVE /HPF (NEGATIVE)
[2020-03-13] MEDS ORDERED: FENTANYL INJ 250 mcg IVP ONE (15:04)
[2020-03-13] MEDS ORDERED: DILAUDID INJ IVP ONE (15:06)
[2020-03-13] MEDS ORDERED: BETADINE SOLN ONE (15:14)
[2020-03-13] MEDS ORDERED: ZOFRAN INJ 4 MG VIAL IVP PRN (15:31)
[2020-03-13] MEDS ORDERED: PHENERGAN INJ 25 MG IM PRN (15:31)
[2020-03-13] MEDS ORDERED: REGLAN INJ 10 MG VIAL IVP PRN (15:31)
[2020-03-13] MEDS ORDERED: BENADRYL INJ 50 MG VIAL IVP PRN (15:31)
[2020-03-13] MEDS: DILAUDID INJ IVP PRN ×4 (15:45→23:56)
[2020-03-13] MEDS ORDERED: D5 1/2 NS 1000 ML 1,000 ML IV ONE (16:36)
[2020-03-13] MEDS: D5 1/2 NS 1000 ML 1,000 ML IV SCH (16:48)
[2020-03-13] MEDS ORDERED: FLAGYL IV PREMIX 500 MG BAG 500 MG/100 ML BAG IV ONE (17:26)
[2020-03-13] MEDS ORDERED: ZOSYN VIAL 3.375 GRAMS IV ONE (17:27)
[2020-03-13] MEDS ORDERED: NS 100 ML IV + SPIKE MINIBAG* 100 ML IV ONE (17:31)
[2020-03-13] MEDS: ZOSYN VIAL 3.375 GRAMS 3.375 G in NS 100 ML IV + SPIKE MINIBAG* 100 ML IV SCH ×2 (17:45→23:26)
[2020-03-13] MEDS: FLAGYL IV PREMIX 500 MG BAG 500 MG/100 ML BAG IV SCH (17:45)
[2020-03-14] MEDS: FLAGYL IV PREMIX 500 MG BAG 500 MG/100 ML BAG IV SCH ×3 (01:00→17:31)
[2020-03-14] MEDS: D5 1/2 NS 1000 ML 1,000 ML IV SCH ×4 (01:04→17:31)
[2020-03-14] MEDS: DILAUDID INJ IVP PRN ×5 (03:43→20:40)
[2020-03-14] MEDS ORDERED: NS 50 ML IV 50 ML IV ONE (05:16)
[2020-03-14] MEDS: ZOSYN VIAL 3.375 GRAMS 3.375 G in NS 100 ML IV + SPIKE MINIBAG* 100 ML IV SCH ×3 (05:30→21:00)
[2020-03-14 07:25] LABS: BASOPHILS # (AUTO) 0.1 X10^3/uL (0.0-0.1); BASOPHILS % (AUTO) 0.3 % (0.2-1.0); EOSINOPHILS # (AUTO) 0.2 x10^3/uL (0.0-0.2); EOSINOPHILS % (AUTO) 0.9 % (0.9-2.9); HEMATOCRIT 34.7 % (36.0-47.0); HEMOGLOBIN 11.6 g/dL (12.0-16.0); LYMPHOCYTES # (AUTO) 1.8 X10^3/uL (1.3-2.9); LYMPHOCYTES % (AUTO) 7.7 % (21.0-51.0); MEAN CORPUSCULAR HEMOGLOBIN 28.7 pg (27.0-34.0); MEAN CORPUSCULAR HGB CONC 33.4 g/dL (33.0-35.0); MEAN CORPUSCULAR VOLUME 86.1 fL (80.0-100.0); MEAN PLATELET VOLUME 6.4 fL (7.4-11.0); MONOCYTES # (AUTO) 0.9 x10^3/uL (0.3-0.8); NEUTROPHILS # (AUTO) 20.3 x10^3/uL (2.2-4.8); NEUTROPHILS % (AUTO) 87.1 % (42.0-75.0); PLATELET COUNT 399 X10^3/uL (150.0-450.0); RED BLOOD COUNT 4.03 X10^6/uL (3.5-5.4); RED CELL DISTRIBUTION WIDTH 13.6 % (11.6-16.5); WHITE BLOOD COUNT 23.3 X10^3/uL (3.6-10.0)
[2020-03-14 07:37] LABS: ALANINE AMINOTRANSFERASE 21 Units/L (12-78); ALBUMIN 2.1 g/dL (3.4-5.0); ALKALINE PHOSPHATASE 40 Units/L (46-116); ASPARTATE AMINO TRANSFERASE 11 Units/L (15-37); BLOOD UREA NITROGEN 6 mg/dL (7-18); CALCIUM 8.1 mg/dL (8.5-10.1); CARBON DIOXIDE 28.9 mmol/L (21-32); CHLORIDE 101 mmol/L (98-107); COR CA(FOR HYPOALB) 9.6 mg/dL (8.5-10.1); SODIUM 136 mmol/L (136-145); TOTAL PROTEIN 5.3 g/dL (6.4-8.2); eGFR NON BLACK RACES > 60 (>60)
--- NOTE | 2020-03-14 07:39 | DR.UPDATE ---
H&P Update History and Physical Update: History and Physical reviewed and patient examined. Changes noted: Yes with the following: IS A 29 YEAR OLD WHITE FEMALE WHO PRESENTED TO THE ER WITH COMPLAINTS OF SUDDEN ONSET LOWER ABDOMINAL PAIN, DIARRHEA, NAUSEA, AND VOMITING. SYMTPOMS STARTED THE PREVIOUS NIGHT. PATIENT WAS RECENTLY HOSPITALIZED FROM 03/01/20 03/05/20 FOR A CROHNS FLARE. PATIENT SIGNED OUT FROM THE HOSPITAL AMA ON 03/05 DUE TO IMPROVEMENT IN PAIN. ON ARRIVAL TO ER THIS VISIT, ABDOMINAL PAIN IS DESCRIBED SHARP, CONSTANT, AND IS RATE A /. PMH INCLUDES CROHNS, GERD, APPENDECTOMY, AND . ON ARRIVAL, VITALS WERE 98.8-124-24-97%-124/68. LABS WERE OBTAINED. ABNORMAL LAB VALUES INCLUDE THE FOLLOWING: WBC 37.1, PLT COUNT 613, CREATININE 1.08, GLUCOSE 163. URINALYSIS UNREMARKABLE. COVID-19 NEGATIVE. AN ABDOMEN XRAY WAS OBTAINED AND REVEALED: The cardiac and mediastinal contours are within normal limits. The lungs are clear without focal consolidation or segmental collapse. No pleural effusion or pneumothorax. Nonobstructive bowel gas pattern. No definite pneumatosis, free air or portal venous gas. Prior appendectomy. AN ABD/PELVIS CT WITH CONTRAST WAS THEN OBTAINED AND REVEALED: Findings of Crohn's disease. There is a short-segment stricture of the terminal ileum. Dilated proximal ileum with small bowel feces sign consistent with at least partial obstruction. The ileum has wall thickening and enhancement. There is ileal perforation with a collection in the small bowel mesentery containing gas and phlegmon. There is inflammatory fat stranding about the inflamed small bowel. Gas in the nondependent urinary bladder. Correlate for instrumentation. No fistulous connection is identified with small bowel. Differential includes cystitis. , GENERAL SURGEON WAS CONSULTED. HE PLANNED TO TAKE PATIENT TO THE OR FOR AND EXPLORATORY LAP AND REPAIR OF THE AFFECTED BOWEL. WE ARE IN AGREEMENT WITH PLANS. SHE WAS STARTED ON D51/2 NS AT 150 ML/HR, DILAUDID 2MG IV Q4H PRN, FLAGYL 500MG IV Q4H, MORPHINE SULFATE 2MG IV Q4H PRN, AND ZOSYN 3.375G IV TID. OTHERWISE, WE WILL FOLLOW UP WITH AM LABS AND CONTINUE TO MONITOR. Prescription drug monitoring program results: PDMP was not reviewed H&P Reviewed: Yes Patient was examined?: Yes
[2020-03-14 08:17] LABS: BAND NEUTROPHILS % 6 % (0-10); PLATELET MORPHOLOGY COMMENT NORMAL (NORMAL)
[2020-03-14] MEDS ORDERED: PROTONIX TAB 40 MG PO SCH (09:00)
--- NOTE | 2020-03-14 09:26 | DR.PROGNOT ---
Hospital Progress Notes - Progress Note for Day of: Progress Note Date: 03/14/20 - Chief Complaint Chief Complaint: post op laparotomy , resection of terminal ileum and part of RT colon for Crohn's disease and perforated SB . doing fairly well with good urine out put . - Past Medical Family Social History Past Med/Fam/Surg Hx: No changes since H&P Allergies: Allergies No Known Drug Allergies Allergy (Verified 12/26/19 11:41) - Review Of Systems ROS: No change since H&P - Vital Signs Vital Signs: Temperature 97.6 F Pulse Rate [Left Brachial] 95 Pulse Rate 95 Respiratory Rate 20 Blood Pressure [Left Arm] 116/66 Blood Pressure 132/73 O2 Sat by Pulse Oximetry 96 - Physical Exam Oriented: Normal Eyes: Normal Ear: Normal Nose: Normal Throat: Normal Respiratory: Normal Cardiovascular: Normal GI:Auscultation: Decreased GI:Palpation: Normal GI: Tenderness: Diffuse (soft abdomen with diffuse tenderness , BS hypoactive ) Mood Description: Calm Speech Pattern: Clear, Appropriate - Laboratory and Diagnostics Result Diagrams: 03/14/20 07:15 03/14/20 07:15 Labs: 03/13/20 13:45 Abdomen Gram Stain - Final 03/13/20 13:45 Abdomen - Preliminary Laboratory WBC 23.3 X10^3/uL (3.6-10.0) H D 03/14/20 07:15 RBC 4.03 X10^6/uL (3.5-5.4) 03/14/20 07:15 Hgb 11.6 g/dL (12.0-16.0) L D 03/14/20 07:15 Hct 34.7 % (36.0-47.0) L 03/14/20 07:15 MCV 86.1 fL (80.0-100.0) 03/14/20 07:15 MCH 28.7 pg (27.0-34.0) 03/14/20 07:15 MCHC 33.4 g/dL (33.0-35.0) 03/14/20 07:15 RDW 13.6 % (11.6-16.5) 03/14/20 07:15 Plt Count 399 X10^3/uL (150.0-450.0) 03/14/20 07:15 Plt Count Comment Adequate (ADEQUATE) 03/14/20 07:15 MPV 6.4 fL (7.4-11.0) L 03/14/20 07:15 Neut % (Auto) 87.1 % (42.0-75.0) H 03/14/20 07:15 Lymph % (Auto) 7.7 % (21.0-51.0) L 03/14/20 07:15 [place] % (Auto) 4.0 % (0.0-13.0) 03/14/20 07:15 Eos % (Auto) 0.9 % (0.9-2.9) 03/14/20 07:15 Baso % (Auto) 0.3 % (0.2-1.0) 03/14/20 07:15 Neut # (Auto) 20.3 x10^3/uL (2.2-4.8) H 03/14/20 07:15 Lymph # (Auto) 1.8 X10^3/uL (1.3-2.9) 03/14/20 07:15 [place] # (Auto) 0.9 x10^3/uL (0.3-0.8) H 03/14/20 07:15 Eos # (Auto) 0.2 x10^3/uL (0.0-0.2) 03/14/20 07:15 Baso # (Auto) 0.1 X10^3/uL (0.0-0.1) 03/14/20 07:15 Absolute Nucleated RBC 0.0 /100WBC 03/14/20 07:15 Total Counted 100 03/14/20 07:15 Neutrophils % (Manual) 85 % (39-76) H 03/14/20 07:15 Band Neutrophils % 6 % (0-10) 03/14/20 07:15 Lymphocytes % (Manual) 5 % (13-43) L 03/14/20 07:15 Monocytes % (Manual) 4 % (4-9) 03/14/20 07:15 Eosinophils % (Manual) 1 % (0-6) 03/13/20 07:15 Plt Morphology Comment Normal (NORMAL) 03/14/20 07:15 RBC Morphology Normal (NORMAL) 03/14/20 07:15 Sodium 136 mmol/L (136-145) 03/14/20 07:15 Corrected Sodium TNP 03/14/20 07:15 Potassium 3.9 mmol/L (3.5-5.1) 03/14/20 07:15 Chloride 101 mmol/L (98-107) 03/14/20 07:15 Carbon Dioxide 28.9 mmol/L (21-32) 03/14/20 07:15 BUN 6 mg/dL (7-18) L 03/14/20 07:15 Creatinine 0.80 mg/dL (0.55-1.02) 03/14/20 07:15 Est GFR (MDRD) Af Amer > 60 (>60) 03/14/20 07:15 Est GFR (MDRD) Non-Af > 60 (>60) 03/14/20 07:15 Glucose 107 mg/dL (65-99) H 03/14/20 07:15 Calcium 8.1 mg/dL (8.5-10.1) L 03/14/20 07:15 Corrected Calcium 9.6 mg/dL (8.5-10.1) 03/14/20 07:15 Total Bilirubin 0.50 mg/dL (0.2-1.0) 03/14/20 07:15 AST 11 Units/L (15-37) L 03/14/20 07:15 ALT 21 Units/L (12-78) 03/14/20 07:15 Alkaline Phosphatase 40 Units/L (46-116) L 03/14/20 07:15 Total Protein 5.3 g/dL (6.4-8.2) L 03/14/20 07:15 Albumin 2.1 g/dL (3.4-5.0) L 03/14/20 07:15 Globulin 3.2 g/dL (2.5-4.5) 03/14/20 07:15 Albumin/Globulin Ratio 0.7 Ratio (1.1-2.1) L 03/14/20 07:15 HCG, Qual Negative <10 mIU/mL 03/13/20 07:15 Specimen Type Clean catch urine 03/13/20 13:25 Urine Color Yellow (YELLOW) 03/13/20 13:25 Urine Appearance Clear (CLEAR) 03/13/20 13:25 Urine pH 5.0 (5.0 - 8.0) 03/13/20 13:25 Ur Specific [place] 1.010 (1.000-1.030) 03/13/20 13:25 Urine Protein 1+ (NEGATIVE) 03/13/20 13:25 Urine Glucose (UA) Negative (NEGATIVE) 03/13/20 13:25 Urine Ketones Negative (NEGATIVE) 03/13/20 13:25 Urine Occult Blood Negative (NEGATIVE) 03/13/20 13:25 Urine Nitrite Negative (NEGATIVE) 03/13/20 13:25 Urine Bilirubin Negative (NEGATIVE) 03/13/20 13:25 Urine Urobilinogen Normal (NORMAL) 03/13/20 13:25 Ur Leukocyte Esterase Negative (NEGATIVE) 03/13/20 13:25 Urine RBC 0-2 /HPF (0-3) 03/13/20 13:25 Urine WBC 0-2 /HPF (0-5) 03/13/20 13:25 Ur Squamous Epith Cells Negative /HPF (NEGATIVE) 03/13/20 13:25 Urine Bacteria Negative /HPF (NEGATIVE) 03/13/20 13:25 Ur Culture Indicated? No/not indicated 03/13/20 13:25 SARS-CoV-2 (PCR) Cancelled 03/13/20 11:48 SARS CoV-2 RNA Rapid TYLER Negative (NEGATIVE) 03/13/20 11:48 Tissue Pathology To follow 03/13/20 14:50 - Assessment and Plan 1: active Crohn's disease with perforated small bowel and entero- enreric fistula . s/p resection day 1 . to d/c NGT, carroll cath , OOB with binder , same IV ATB and DVT prophylaxis . nutritional support . - Problem Patient Problems: Patient Problems Perforation bowel (Acute) K63.1 Crohn's disease (Acute) K50.90
[2020-03-14] MEDS: PROTONIX INJ 40 MG VIAL IVP SCH (10:17)
[2020-03-14] MEDS: PROCALAMINE 3 % 1,000 ML IV SCH (10:17)
[2020-03-14] MEDS: LOVENOX INJ 40 MG SYR SC SCH (10:17)
[2020-03-15] MEDS: D5 1/2 NS 1000 ML 1,000 ML IV SCH ×4 (00:50→16:27)
[2020-03-15] MEDS: FLAGYL IV PREMIX 500 MG BAG 500 MG/100 ML BAG IV SCH ×3 (00:57→17:13)
[2020-03-15] MEDS: DILAUDID INJ IVP PRN ×5 (01:15→18:34)
[2020-03-15 05:21] LABS: BASOPHILS % (AUTO) 0.3 % (0.2-1.0); EOSINOPHILS # (AUTO) 0.1 x10^3/uL (0.0-0.2); EOSINOPHILS % (AUTO) 0.7 % (0.9-2.9); HEMATOCRIT 31.7 % (36.0-47.0); HEMOGLOBIN 10.4 g/dL (12.0-16.0); LYMPHOCYTES # (AUTO) 1.5 X10^3/uL (1.3-2.9); LYMPHOCYTES % (AUTO) 11.2 % (21.0-51.0); MEAN CORPUSCULAR HEMOGLOBIN 28.6 pg (27.0-34.0); MEAN CORPUSCULAR HGB CONC 32.9 g/dL (33.0-35.0); MEAN CORPUSCULAR VOLUME 86.9 fL (80.0-100.0); MEAN PLATELET VOLUME 7.3 fL (7.4-11.0); MONOCYTES # (AUTO) 0.9 x10^3/uL (0.3-0.8); MONOCYTES % (AUTO) 6.7 % (0.0-13.0); NEUTROPHILS # (AUTO) 11.2 x10^3/uL (2.2-4.8); NEUTROPHILS % (AUTO) 81.1 % (42.0-75.0); PLATELET COUNT 368 X10^3/uL (150.0-450.0); RED BLOOD COUNT 3.65 X10^6/uL (3.5-5.4); RED CELL DISTRIBUTION WIDTH 13.8 % (11.6-16.5); WHITE BLOOD COUNT 13.7 X10^3/uL (3.6-10.0)
[2020-03-15] MEDS: ZOSYN VIAL 3.375 GRAMS 3.375 G in NS 100 ML IV + SPIKE MINIBAG* 100 ML IV SCH ×3 (05:30→21:28)
[2020-03-15 05:34] LABS: ALANINE AMINOTRANSFERASE 23 Units/L (12-78); ALKALINE PHOSPHATASE 40 Units/L (46-116); ASPARTATE AMINO TRANSFERASE 14 Units/L (15-37); BLOOD UREA NITROGEN 6 mg/dL (7-18); CALCIUM 8.4 mg/dL (8.5-10.1); CARBON DIOXIDE 25.3 mmol/L (21-32); CHLORIDE 101 mmol/L (98-107); COR NA(FOR HYPERGLY) 135 mmol/L (136-145); SODIUM 135 mmol/L (136-145); TOTAL PROTEIN 5.4 g/dL (6.4-8.2); eGFR NON BLACK RACES > 60 (>60)
[2020-03-15] MEDS ORDERED: POTASSIUM CHL 60 MEQ/NS 0.45% 500 ML IV PRN (06:21)
[2020-03-15] MEDS ORDERED: KLOR-CON PO PRN (06:21)
[2020-03-15] MEDS ORDERED: POTASSIUM CHL 40 MEQ/NS 0.45% 500 ML IV PRN (06:21)
[2020-03-15] MEDS ORDERED: K-RIDER 10 MEQ/NS 100 ML 10 MEQ/100 ML BAG IV PRN (06:21)
[2020-03-15] MEDS ORDERED: MICRO K EXTEN CAP 10 MEQ PO PRN (06:21)
[2020-03-15] MEDS ORDERED: POTASSIUM CHLORIDE LIQ 20 MEQ UDC PO PRN (06:21)
[2020-03-15] MEDS: LOVENOX INJ 40 MG SYR SC SCH (09:20)
[2020-03-15] MEDS: K-DUR TAB 20 MEQ PO PRN ×2 (09:21→21:28)
[2020-03-15] MEDS: MAGNESIUM SULFATE 1 GRAM/100 mL PREMIX 1 GM/100 ML BAG IV PRN ×3 (09:21→14:16)
[2020-03-15] MEDS: PROTONIX INJ 40 MG VIAL IVP SCH (09:21)
--- NOTE | 2020-03-15 10:11 | DR.PROGNOT ---
Hospital Progress Notes - Progress Note for Day of: Progress Note Date: 03/15/20 - Chief Complaint Chief Complaint: post op laparotomy , resection of terminal ileum and part of RT colon for Crohn's disease and perforated SB . doing fairly well. no bowel movement yet but passing flatus . minimal drainage in ISREAL . - Past Medical Family Social History Past Med/Fam/Surg Hx: No changes since H&P Allergies: Allergies No Known Drug Allergies Allergy (Verified 12/26/19 11:41) - Review Of Systems ROS: No change since H&P - Vital Signs Vital Signs: Temperature 97.9 F Pulse Rate [Left Brachial] 85 Pulse Rate 95 Respiratory Rate 19 Blood Pressure [Right Arm] 140/83 Blood Pressure [Left Arm] 117/65 Blood Pressure 132/73 O2 Sat by Pulse Oximetry 96 - Physical Exam Oriented: Normal Eyes: Normal Ear: Normal Nose: Normal Throat: Normal Respiratory: Normal Cardiovascular: Normal GI:Auscultation: Decreased GI:Palpation: Normal GI: Tenderness: Diffuse (soft abdomen with diffuse tenderness , BS hypoactive ) Mood Description: Calm Speech Pattern: Clear, Appropriate - Laboratory and Diagnostics Result Diagrams: 03/15/20 04:18 03/15/20 04:18 Labs: 03/13/20 13:45 Abdomen Gram Stain - Final 03/13/20 13:45 Abdomen - Preliminary Laboratory WBC 13.7 X10^3/uL (3.6-10.0) H D 03/15/20 04:18 RBC 3.65 X10^6/uL (3.5-5.4) 03/15/20 04:18 Hgb 10.4 g/dL (12.0-16.0) L 03/15/20 04:18 Hct 31.7 % (36.0-47.0) L 03/15/20 04:18 MCV 86.9 fL (80.0-100.0) 03/15/20 04:18 MCH 28.6 pg (27.0-34.0) 03/15/20 04:18 MCHC 32.9 g/dL (33.0-35.0) L 03/15/20 04:18 RDW 13.8 % (11.6-16.5) 03/15/20 04:18 Plt Count 368 X10^3/uL (150.0-450.0) 03/15/20 04:18 Plt Count Comment Adequate (ADEQUATE) 03/14/20 07:15 MPV 7.3 fL (7.4-11.0) L 03/15/20 04:18 Neut % (Auto) 81.1 % (42.0-75.0) H 03/15/20 04:18 Lymph % (Auto) 11.2 % (21.0-51.0) L 03/15/20 04:18 [place] % (Auto) 6.7 % (0.0-13.0) 03/15/20 04:18 Eos % (Auto) 0.7 % (0.9-2.9) L 03/15/20 04:18 Baso % (Auto) 0.3 % (0.2-1.0) 03/15/20 04:18 Neut # (Auto) 11.2 x10^3/uL (2.2-4.8) H 03/15/20 04:18 Lymph # (Auto) 1.5 X10^3/uL (1.3-2.9) 03/15/20 04:18 [place] # (Auto) 0.9 x10^3/uL (0.3-0.8) H 03/15/20 04:18 Eos # (Auto) 0.1 x10^3/uL (0.0-0.2) 03/15/20 04:18 Baso # (Auto) 0.0 X10^3/uL (0.0-0.1) 03/15/20 04:18 Absolute Nucleated RBC 0.0 /100WBC 03/15/20 04:18 Total Counted 100 03/14/20 07:15 Neutrophils % (Manual) 85 % (39-76) H 03/14/20 07:15 Band Neutrophils % 6 % (0-10) 03/14/20 07:15 Lymphocytes % (Manual) 5 % (13-43) L 03/14/20 07:15 Monocytes % (Manual) 4 % (4-9) 03/14/20 07:15 Eosinophils % (Manual) 1 % (0-6) 03/13/20 07:15 Plt Morphology Comment Normal (NORMAL) 03/14/20 07:15 RBC Morphology Normal (NORMAL) 03/14/20 07:15 Sodium 135 mmol/L (136-145) L 03/15/20 04:18 Corrected Sodium 135 mmol/L (136-145) L 03/15/20 04:18 Potassium 3.3 mmol/L (3.5-5.1) L 03/15/20 04:18 Chloride 101 mmol/L (98-107) 03/15/20 04:18 Carbon Dioxide 25.3 mmol/L (21-32) 03/15/20 04:18 BUN 6 mg/dL (7-18) L 03/15/20 04:18 Creatinine 0.60 mg/dL (0.55-1.02) 03/15/20 04:18 Est GFR (MDRD) Af Amer > 60 (>60) 03/15/20 04:18 Est GFR (MDRD) Non-Af > 60 (>60) 03/15/20 04:18 Glucose 115 mg/dL (65-99) H 03/15/20 04:18 Calcium 8.4 mg/dL (8.5-10.1) L 03/15/20 04:18 Corrected Calcium 10.0 mg/dL (8.5-10.1) 03/15/20 04:18 Magnesium 1.8 mg/dL (1.7-2.9) 03/15/20 04:18 Total Bilirubin 0.40 mg/dL (0.2-1.0) 03/15/20 04:18 AST 14 Units/L (15-37) L 03/15/20 04:18 ALT 23 Units/L (12-78) 03/15/20 04:18 Alkaline Phosphatase 40 Units/L (46-116) L 03/15/20 04:18 Total Protein 5.4 g/dL (6.4-8.2) L 03/15/20 04:18 Albumin 2.0 g/dL (3.4-5.0) L 03/15/20 04:18 Globulin 3.4 g/dL (2.5-4.5) 03/15/20 04:18 Albumin/Globulin Ratio 0.6 Ratio (1.1-2.1) L 03/15/20 04:18 HCG, Qual Negative <10 mIU/mL 03/13/20 07:15 Specimen Type Clean catch urine 03/13/20 13:25 Urine Color Yellow (YELLOW) 03/13/20 13:25 Urine Appearance Clear (CLEAR) 03/13/20 13:25 Urine pH 5.0 (5.0 - 8.0) 03/13/20 13:25 Ur Specific [place] 1.010 (1.000-1.030) 03/13/20 13:25 Urine Protein 1+ (NEGATIVE) 03/13/20 13:25 Urine Glucose (UA) Negative (NEGATIVE) 03/13/20 13:25 Urine Ketones Negative (NEGATIVE) 03/13/20 13:25 Urine Occult Blood Negative (NEGATIVE) 03/13/20 13:25 Urine Nitrite Negative (NEGATIVE) 03/13/20 13:25 Urine Bilirubin Negative (NEGATIVE) 03/13/20 13:25 Urine Urobilinogen Normal (NORMAL) 03/13/20 13:25 Ur Leukocyte Esterase Negative (NEGATIVE) 03/13/20 13:25 Urine RBC 0-2 /HPF (0-3) 03/13/20 13:25 Urine WBC 0-2 /HPF (0-5) 03/13/20 13:25 Ur Squamous Epith Cells Negative /HPF (NEGATIVE) 03/13/20 13:25 Urine Bacteria Negative /HPF (NEGATIVE) 03/13/20 13:25 Ur Culture Indicated? No/not indicated 03/13/20 13:25 SARS-CoV-2 (PCR) Cancelled 03/13/20 11:48 SARS CoV-2 RNA Rapid TYLER Negative (NEGATIVE) 03/13/20 11:48 Tissue Pathology To follow 03/13/20 14:50 - Assessment and Plan 1: active Crohn's disease with perforated small bowel and entero- enreric fi stula . s/p resection day 2 . to advance diet to full liquid and reduce IVF . same ATB . - Problem Patient Problems: Patient Problems Perforation bowel (Acute) K63.1 Crohn's disease (Acute) K50.90
--- NOTE | 2020-03-15 12:03 | PCM.PROG ---
Progress Note - Progress Note for Day of Date of Exam: 03/14/20 - Subjective Subjective: WAS ADMITTED FOR TREATMENT OF AN ILIUM PERFORATION AND CROHNS DISEASE. SHE IS DAY 1 STATUS POST RESECTOIN OF THE TERMIAL ILEUM AND CECUM WITH ILEOCOLIC ANASTOMOSIS AND RELEASE OF ABDOMINAL ADHESION. TODAY, SHE IS ALERT AND ORIENTED, LYING IN BED ON MORNING ROUNDS. SHE CONTINUE WITH COMPLAINTS OF DIFFUSE ABDOMINAL PAIN THIS MORNING. ON EXAMINATION, NG TUBE IS NOTED TO THE RIGHT NARE, CONNECTED TO LOW INTERMITTENT SUCTION. HEART IS REGULAR IN RATE AND RHYTHM. BILATERAL LUNGS ARE NOTED WITH DIMINISHED LUNG SOUNDS THROUGHOUT. ABDOMEN IS ROUND AND NOTED WITH SURGICAL DRESSINGS. A ISREAL DRAIN IS NOTED TO THE RIGHT SIDE ABDOMEN WITH MINIMAL DRAINAGE. VILLAGRAN CATHETER NOTED TO BEDSIDE DRAINAGE. HER VITALS THIS MORNING ARE: 97.9-95-18-96%-116/66. LABS WERE OBTAINED. ABNORMAL LAB VALUES INCLUDE THE FOLLOWING: WBC 23.3, HGB 11.6, HCT 34.7, BUN 6, GLUCOSE 107, CALCIUM 8.1, AST 11, ALK PHOS 40, TOTAL PROTEIN 5.3, ALBUMIN 2.1. TISSUE PATHOLOGY IS PENDING. ABDOMINAL FLUID CULTURE IS PENDING. SHE IS CURRENTLY RECEIVING D51/2 NS AT 150 ML/HR, DILAUDID 2MG IV Q4H PRN, FLAGYL 500MG IV Q4H, MORPHINE SULFATE 2MG IV Q4H PRN, AND ZOSYN 3.375G IV TID. TODAY, WE WILL ADD PROCALAMINE AT 40 ML/HR AND DECREASE OTHER IV FLUIDS TO 40 ML/HR. OTHERWISE, WE WILL FOLLOW UP WITH AM LABS AND CONTINUE TO MONITOR. - Past Medical Family Social History Past Med/Fam/Surg Hx: No changes since H&P Allergies: Allergies No Known Drug Allergies Allergy (Verified 12/26/19 11:41) - Review of Systems ROS: No change since H&P - Vital Signs and I&O's Vital Signs: Temperature 97.9 F Pulse Rate [Left Brachial] 85 Pulse Rate 95 Respiratory Rate 17 Blood Pressure [Right Arm] 140/83 Blood Pressure [Left Arm] 117/65 Blood Pressure 132/73 O2 Sat by Pulse Oximetry 96 Intake and Output: Intake & Output 03/13/20 03/14/20 03/15/20 03/16/20 11:59 11:59 11:59 11:59 Intake Total 3055 / 3055 2170 / 2170 Output Total 2835 / 2835 1280 / 1280 Balance 220 / 220 890 / 890 - Physical Exam Oriented: Normal Eyes: Normal Ear: Normal Nose: Normal, Other (NG TUBE RIGHT NARE) Throat: Normal Respiratory: Diminished Cardiovascular: Normal Auscultation: Bowel Sounds: Decreased Tenderness: Diffuse (soft abdomen with diffuse tenderness , BS hypoactive ), Other (ISREAL DRAIN RIGHT SIDE ABDOMEN) Skin: Normal Musculoskeletal: Normal Mood Description: Calm Speech Pattern: Clear, Appropriate - Laboratory and Diagnostics Result Diagrams: 03/15/20 04:18 03/15/20 04:18 Labs: 03/13/20 13:45 Abdomen Gram Stain - Final 03/13/20 13:45 Abdomen - Preliminary Laboratory WBC 13.7 X10^3/uL (3.6-10.0) H D 03/15/20 04:18 RBC 3.65 X10^6/uL (3.5-5.4) 03/15/20 04:18 Hgb 10.4 g/dL (12.0-16.0) L 03/15/20 04:18 Hct 31.7 % (36.0-47.0) L 03/15/20 04:18 MCV 86.9 fL (80.0-100.0) 03/15/20 04:18 MCH 28.6 pg (27.0-34.0) 03/15/20 04:18 MCHC 32.9 g/dL (33.0-35.0) L 03/15/20 04:18 RDW 13.8 % (11.6-16.5) 03/15/20 04:18 Plt Count 368 X10^3/uL (150.0-450.0) 03/15/20 04:18 Plt Count Comment Adequate (ADEQUATE) 03/14/20 07:15 MPV 7.3 fL (7.4-11.0) L 03/15/20 04:18 Neut % (Auto) 81.1 % (42.0-75.0) H 03/15/20 04:18 Lymph % (Auto) 11.2 % (21.0-51.0) L 03/15/20 04:18 [place] % (Auto) 6.7 % (0.0-13.0) 03/15/20 04:18 Eos % (Auto) 0.7 % (0.9-2.9) L 03/15/20 04:18 Baso % (Auto) 0.3 % (0.2-1.0) 03/15/20 04:18 Neut # (Auto) 11.2 x10^3/uL (2.2-4.8) H 03/15/20 04:18 Lymph # (Auto) 1.5 X10^3/uL (1.3-2.9) 03/15/20 04:18 [place] # (Auto) 0.9 x10^3/uL (0.3-0.8) H 03/15/20 04:18 Eos # (Auto) 0.1 x10^3/uL (0.0-0.2) 03/15/20 04:18 Baso # (Auto) 0.0 X10^3/uL (0.0-0.1) 03/15/20 04:18 Absolute Nucleated RBC 0.0 /100WBC 03/15/20 04:18 Total Counted 100 03/14/20 07:15 Neutrophils % (Manual) 85 % (39-76) H 03/14/20 07:15 Band Neutrophils % 6 % (0-10) 03/14/20 07:15 Lymphocytes % (Manual) 5 % (13-43) L 03/14/20 07:15 Monocytes % (Manual) 4 % (4-9) 03/14/20 07:15 Eosinophils % (Manual) 1 % (0-6) 03/13/20 07:15 Plt Morphology Comment Normal (NORMAL) 03/14/20 07:15 RBC Morphology Normal (NORMAL) 03/14/20 07:15 Sodium 135 mmol/L (136-145) L 03/15/20 04:18 Corrected Sodium 135 mmol/L (136-145) L 03/15/20 04:18 Potassium 3.3 mmol/L (3.5-5.1) L 03/15/20 04:18 Chloride 101 mmol/L (98-107) 03/15/20 04:18 Carbon Dioxide 25.3 mmol/L (21-32) 03/15/20 04:18 BUN 6 mg/dL (7-18) L 03/15/20 04:18 Creatinine 0.60 mg/dL (0.55-1.02) 03/15/20 04:18 Est GFR (MDRD) Af Amer > 60 (>60) 03/15/20 04:18 Est GFR (MDRD) Non-Af > 60 (>60) 03/15/20 04:18 Glucose 115 mg/dL (65-99) H 03/15/20 04:18 Calcium 8.4 mg/dL (8.5-10.1) L 03/15/20 04:18 Corrected Calcium 10.0 mg/dL (8.5-10.1) 03/15/20 04:18 Magnesium 1.8 mg/dL (1.7-2.9) 03/15/20 04:18 Total Bilirubin 0.40 mg/dL (0.2-1.0) 03/15/20 04:18 AST 14 Units/L (15-37) L 03/15/20 04:18 ALT 23 Units/L (12-78) 03/15/20 04:18 Alkaline Phosphatase 40 Units/L (46-116) L 03/15/20 04:18 Total Protein 5.4 g/dL (6.4-8.2) L 03/15/20 04:18 Albumin 2.0 g/dL (3.4-5.0) L 03/15/20 04:18 Globulin 3.4 g/dL (2.5-4.5) 03/15/20 04:18 Albumin/Globulin Ratio 0.6 Ratio (1.1-2.1) L 03/15/20 04:18 HCG, Qual Negative <10 mIU/mL 03/13/20 07:15 Specimen Type Clean catch urine 03/13/20 13:25 Urine Color Yellow (YELLOW) 03/13/20 13:25 Urine Appearance Clear (CLEAR) 03/13/20 13:25 Urine pH 5.0 (5.0 - 8.0) 03/13/20 13:25 Ur Specific [place] 1.010 (1.000-1.030) 03/13/20 13:25 Urine Protein 1+ (NEGATIVE) 03/13/20 13:25 Urine Glucose (UA) Negative (NEGATIVE) 03/13/20 13:25 Urine Ketones Negative (NEGATIVE) 03/13/20 13:25 Urine Occult Blood Negative (NEGATIVE) 03/13/20 13:25 Urine Nitrite Negative (NEGATIVE) 03/13/20 13:25 Urine Bilirubin Negative (NEGATIVE) 03/13/20 13:25 Urine Urobilinogen Normal (NORMAL) 03/13/20 13:25 Ur Leukocyte Esterase Negative (NEGATIVE) 03/13/20 13:25 Urine RBC 0-2 /HPF (0-3) 03/13/20 13:25 Urine WBC 0-2 /HPF (0-5) 03/13/20 13:25 Ur Squamous Epith Cells Negative /HPF (NEGATIVE) 03/13/20 13:25 Urine Bacteria Negative /HPF (NEGATIVE) 03/13/20 13:25 Ur Culture Indicated? No/not indicated 03/13/20 13:25 SARS-CoV-2 (PCR) Cancelled 03/13/20 11:48 SARS CoV-2 RNA Rapid TYLER Negative (NEGATIVE) 03/13/20 11:48 Tissue Pathology To follow 03/13/20 14:50 - Plan (1) Perforation bowel Status: Acute Plan: POST OP, PROCAL AT 40 ML/HR, D51/2 NS AT 40 ML/HR, DILAUDID 2MG IV Q4H PRN, FLAGYL 500MG IV Q4H, MORPHINE SULFATE 2MG IV Q4H PRN, AND ZOSYN 3.375G IV TID (2) Crohn's disease Status: Acute Qualifiers: Gastrointestinal tract location: small intestine Digestive disease complication type: with abscess Qualified Code(s): K50.014 - Crohn's disease of small intestine with abscess
--- NOTE | 2020-03-15 12:07 | PCM.PROG ---
Progress Note - Progress Note for Day of Date of Exam: 03/15/20 - Subjective Subjective: WAS ADMITTED FOR TREATMENT OF AN ILIUM PERFORATION AND CROHNS DISEASE. SHE IS DAY 2 STATUS POST RESECTOIN OF THE TERMIAL ILEUM AND CECUM WITH ILEOCOLIC ANASTOMOSIS AND RELEASE OF ABDOMINAL ADHESION. TODAY, SHE IS ALERT AND ORIENTED, LYING IN BED ON MORNING ROUNDS. SHE CONTINUE WITH COMPLAINTS OF DIFFUSE ABDOMINAL PAIN THIS MORNING. SHE DENIES HAVING A BOWEL MOVEMENT YET, BUT IS PASSING FLATUS. ON EXAMINATION, NG TUBE IS NOTED TO THE RIGHT NARE, CONNECTED TO LOW INTERMITTENT SUCTION. HEART IS REGULAR IN RATE AND RHYTHM. BILATERAL LUNGS ARE NOTED WITH DIMINISHED LUNG SOUNDS THROUGHOUT. ABDOMEN IS ROUND AND NOTED WITH SURGICAL DRESSINGS. A ISREAL DRAIN IS NOTED TO THE RIGHT SIDE ABDOMEN WITH MINIMAL DRAINAGE. VILLAGRAN CATHETER NOTED TO BEDSIDE DRAINAGE. HER VITALS THIS MORNING ARE: 97.9-85-20-96%-140/83. LABS WERE OBTAINED. ABNORMAL LAB VALUES INCLUDE THE FOLLOWING: WBC 13.7, HGB 10.4, HCT 31.7, SODIUM 135, POTASSIUM 3.3, BUN 6, GLUCOSE 115, CALCIUM 8.4, AST 14, ALK PHOS 40, TOTAL PROTEIN 5.4, ALBUMIN 2.0. TISSUE PATHOLOGY IS PENDING. ABDOMINAL FLUID CULTURE IS PENDING. SHE IS CURRENTLY RECEIVING PROCAL AT 40 ML/HR, D51/2 NS AT 40 ML/HR, DILAUDID 2MG IV Q4H PRN, FLAGYL 500MG IV Q4H, MORPHINE SULFATE 2MG IV Q4H PRN, AND ZOSYN 3.375G IV TID. WE WILL CONTINUE WITH CURRENT PLAN OF CARE TODAY. OTHERWISE, WE WILL FOLLOW UP WITH AM LABS AND CONTINUE TO MONITOR. - Past Medical Family Social History Past Med/Fam/Surg Hx: No changes since H&P Allergies: Allergies No Known Drug Allergies Allergy (Verified 12/26/19 11:41) - Review of Systems ROS: No change since H&P - Vital Signs and I&O's Vital Signs: Temperature 97.9 F Pulse Rate [Left Brachial] 85 Pulse Rate 95 Respiratory Rate 17 Blood Pressure [Right Arm] 140/83 Blood Pressure [Left Arm] 117/65 Blood Pressure 132/73 O2 Sat by Pulse Oximetry 96 Intake and Output: Intake & Output 03/13/20 03/14/20 03/15/20 03/16/20 11:59 11:59 11:59 11:59 Intake Total 3055 / 3055 2170 / 2170 Output Total 2835 / 2835 1280 / 1280 Balance 220 / 890 / 890 - Physical Exam Oriented: Normal Eyes: Normal Ear: Normal Nose: Normal, Other (NG TUBE RIGHT NARE) Throat: Normal Respiratory: Diminished Cardiovascular: Normal Auscultation: Bowel Sounds: Decreased Tenderness: Diffuse (soft abdomen with diffuse tenderness , BS hypoactive ), Other (ISREAL DRAIN RIGHT SIDE ABDOMEN) Skin: Normal Musculoskeletal: Normal Mood Description: Calm Speech Pattern: Clear, Appropriate - Laboratory and Diagnostics Result Diagrams: 03/15/20 04:18 03/15/20 04:18 Labs: 03/13/20 13:45 Abdomen Gram Stain - Final 03/13/20 13:45 Abdomen - Preliminary Laboratory WBC 13.7 X10^3/uL (3.6-10.0) H D 03/15/20 04:18 RBC 3.65 X10^6/uL (3.5-5.4) 03/15/20 04:18 Hgb 10.4 g/dL (12.0-16.0) L 03/15/20 04:18 Hct 31.7 % (36.0-47.0) L 03/15/20 04:18 MCV 86.9 fL (80.0-100.0) 03/15/20 04:18 MCH 28.6 pg (27.0-34.0) 03/15/20 04:18 MCHC 32.9 g/dL (33.0-35.0) L 03/15/20 04:18 RDW 13.8 % (11.6-16.5) 03/15/20 04:18 Plt Count 368 X10^3/uL (150.0-450.0) 03/15/20 04:18 Plt Count Comment Adequate (ADEQUATE) 03/14/20 07:15 MPV 7.3 fL (7.4-11.0) L 03/15/20 04:18 Neut % (Auto) 81.1 % (42.0-75.0) H 03/15/20 04:18 Lymph % (Auto) 11.2 % (21.0-51.0) L 03/15/20 04:18 [place] % (Auto) 6.7 % (0.0-13.0) 03/15/20 04:18 Eos % (Auto) 0.7 % (0.9-2.9) L 03/15/20 04:18 Baso % (Auto) 0.3 % (0.2-1.0) 03/15/20 04:18 Neut # (Auto) 11.2 x10^3/uL (2.2-4.8) H 03/15/20 04:18 Lymph # (Auto) 1.5 X10^3/uL (1.3-2.9) 03/15/20 04:18 [place] # (Auto) 0.9 x10^3/uL (0.3-0.8) H 03/15/20 04:18 Eos # (Auto) 0.1 x10^3/uL (0.0-0.2) 03/15/20 04:18 Baso # (Auto) 0.0 X10^3/uL (0.0-0.1) 03/15/20 04:18 Absolute Nucleated RBC 0.0 /100WBC 03/15/20 04:18 Total Counted 100 03/14/20 07:15 Neutrophils % (Manual) 85 % (39-76) H 03/14/20 07:15 Band Neutrophils % 6 % (0-10) 03/14/20 07:15 Lymphocytes % (Manual) 5 % (13-43) L 03/14/20 07:15 Monocytes % (Manual) 4 % (4-9) 03/14/20 07:15 Eosinophils % (Manual) 1 % (0-6) 03/13/20 07:15 Plt Morphology Comment Normal (NORMAL) 03/14/20 07:15 RBC Morphology Normal (NORMAL) 03/14/20 07:15 Sodium 135 mmol/L (136-145) L 03/15/20 04:18 Corrected Sodium 135 mmol/L (136-145) L 03/15/20 04:18 Potassium 3.3 mmol/L (3.5-5.1) L 03/15/20 04:18 Chloride 101 mmol/L (98-107) 03/15/20 04:18 Carbon Dioxide 25.3 mmol/L (21-32) 03/15/20 04:18 BUN 6 mg/dL (7-18) L 03/15/20 04:18 Creatinine 0.60 mg/dL (0.55-1.02) 03/15/20 04:18 Est GFR (MDRD) Af Amer > 60 (>60) 03/15/20 04:18 Est GFR (MDRD) Non-Af > 60 (>60) 03/15/20 04:18 Glucose 115 mg/dL (65-99) H 03/15/20 04:18 Calcium 8.4 mg/dL (8.5-10.1) L 03/15/20 04:18 Corrected Calcium 10.0 mg/dL (8.5-10.1) 03/15/20 04:18 Magnesium 1.8 mg/dL (1.7-2.9) 03/15/20 04:18 Total Bilirubin 0.40 mg/dL (0.2-1.0) 03/15/20 04:18 AST 14 Units/L (15-37) L 03/15/20 04:18 ALT 23 Units/L (12-78) 03/15/20 04:18 Alkaline Phosphatase 40 Units/L (46-116) L 03/15/20 04:18 Total Protein 5.4 g/dL (6.4-8.2) L 03/15/20 04:18 Albumin 2.0 g/dL (3.4-5.0) L 03/15/20 04:18 Globulin 3.4 g/dL (2.5-4.5) 03/15/20 04:18 Albumin/Globulin Ratio 0.6 Ratio (1.1-2.1) L 03/15/20 04:18 HCG, Qual Negative <10 mIU/mL 03/13/20 07:15 Specimen Type Clean catch urine 03/13/20 13:25 Urine Color Yellow (YELLOW) 03/13/20 13:25 Urine Appearance Clear (CLEAR) 03/13/20 13:25 Urine pH 5.0 (5.0 - 8.0) 03/13/20 13:25 Ur Specific [place] 1.010 (1.000-1.030) 03/13/20 13:25 Urine Protein 1+ (NEGATIVE) 03/13/20 13:25 Urine Glucose (UA) Negative (NEGATIVE) 03/13/20 13:25 Urine Ketones Negative (NEGATIVE) 03/13/20 13:25 Urine Occult Blood Negative (NEGATIVE) 03/13/20 13:25 Urine Nitrite Negative (NEGATIVE) 03/13/20 13:25 Urine Bilirubin Negative (NEGATIVE) 03/13/20 13:25 Urine Urobilinogen Normal (NORMAL) 03/13/20 13:25 Ur Leukocyte Esterase Negative (NEGATIVE) 03/13/20 13:25 Urine RBC 0-2 /HPF (0-3) 03/13/20 13:25 Urine WBC 0-2 /HPF (0-5) 03/13/20 13:25 Ur Squamous Epith Cells Negative /HPF (NEGATIVE) 03/13/20 13:25 Urine Bacteria Negative /HPF (NEGATIVE) 03/13/20 13:25 Ur Culture Indicated? No/not indicated 03/13/20 13:25 SARS-CoV-2 (PCR) Cancelled 03/13/20 11:48 SARS CoV-2 RNA Rapid TYLER Negative (NEGATIVE) 03/13/20 11:48 Tissue Pathology To follow 03/13/20 14:50 - Plan (1) Perforation bowel Status: Acute Plan: POST OP, PROCAL AT 40 ML/HR, D51/2 NS AT 40 ML/HR, DILAUDID 2MG IV Q4H PRN, FLAGYL 500MG IV Q4H, MORPHINE SULFATE 2MG IV Q4H PRN, AND ZOSYN 3.375G IV TID (2) Crohn's disease Status: Acute Qualifiers: Gastrointestinal tract location: small intestine Digestive disease complication type: with abscess Qualified Code(s): K50.014 - Crohn's disease of small intestine with abscess
[2020-03-15] MEDS: PROCALAMINE 3 % 1,000 ML IV SCH (21:35)
[2020-03-15] MEDS ORDERED: ZOFRAN INJ 4 MG VIAL IVP PRN (21:54)
[2020-03-16] MEDS: DILAUDID INJ IVP PRN ×3 (00:20→09:46)
[2020-03-16] MEDS: FLAGYL IV PREMIX 500 MG BAG 500 MG/100 ML BAG IV SCH ×2 (00:22→08:35)
[2020-03-16] MEDS: D5 1/2 NS 1000 ML 1,000 ML IV SCH ×2 (01:03→09:03)
[2020-03-16 05:29] LABS: BASOPHILS % (AUTO) 0.3 % (0.2-1.0); EOSINOPHILS # (AUTO) 0.2 x10^3/uL (0.0-0.2); EOSINOPHILS % (AUTO) 2.2 % (0.9-2.9); HEMATOCRIT 31.5 % (36.0-47.0); HEMOGLOBIN 10.7 g/dL (12.0-16.0); LYMPHOCYTES # (AUTO) 1.4 X10^3/uL (1.3-2.9); LYMPHOCYTES % (AUTO) 14.7 % (21.0-51.0); MEAN CORPUSCULAR HGB CONC 33.9 g/dL (33.0-35.0); MEAN CORPUSCULAR VOLUME 85.7 fL (80.0-100.0); MONOCYTES # (AUTO) 0.6 x10^3/uL (0.3-0.8); MONOCYTES % (AUTO) 6.8 % (0.0-13.0); NEUTROPHILS # (AUTO) 7.1 x10^3/uL (2.2-4.8); PLATELET COUNT 409 X10^3/uL (150.0-450.0); RED BLOOD COUNT 3.68 X10^6/uL (3.5-5.4); RED CELL DISTRIBUTION WIDTH 14.1 % (11.6-16.5); WHITE BLOOD COUNT 9.4 X10^3/uL (3.6-10.0)
[2020-03-16] MEDS: ZOSYN VIAL 3.375 GRAMS 3.375 G in NS 100 ML IV + SPIKE MINIBAG* 100 ML IV SCH (05:29)
[2020-03-16 05:45] LABS: ALANINE AMINOTRANSFERASE 21 Units/L (12-78); ALBUMIN 2.2 g/dL (3.4-5.0); ALKALINE PHOSPHATASE 41 Units/L (46-116); ASPARTATE AMINO TRANSFERASE 13 Units/L (15-37); BLOOD UREA NITROGEN 6 mg/dL (7-18); CALCIUM 8.8 mg/dL (8.5-10.1); CHLORIDE 104 mmol/L (98-107); COR CA(FOR HYPOALB) 10.2 mg/dL (8.5-10.1); SODIUM 138 mmol/L (136-145); TOTAL PROTEIN 5.8 g/dL (6.4-8.2); eGFR NON BLACK RACES > 60 (>60)
[2020-03-16] MEDS: PROTONIX INJ 40 MG VIAL IVP SCH (08:35)
[2020-03-16] MEDS: LOVENOX INJ 40 MG SYR SC SCH (08:35)
--- NOTE | 2020-03-16 10:06 | DR.PROGNOT ---
Hospital Progress Notes - Progress Note for Day of: Progress Note Date: 03/16/20 - Chief Complaint Chief Complaint: feeling better today . tolerating diet . afebrile . WBC is normal . ISREAL was d/zenaida . no wiynd infection . - Past Medical Family Social History Past Med/Fam/Surg Hx: No changes since H&P Allergies: Allergies No Known Drug Allergies Allergy (Verified 12/26/19 11:41) - Review Of Systems ROS: No change since H&P - Vital Signs Vital Signs: Temperature 98.5 F Pulse Rate [Left Brachial] 73 Pulse Rate 95 Respiratory Rate 18 Blood Pressure [Right Arm] 111/64 Blood Pressure [Left Arm] 125/78 Blood Pressure 132/73 O2 Sat by Pulse Oximetry 99 - Physical Exam Oriented: Normal Eyes: Normal Ear: Normal Nose: Normal, Other (NG TUBE RIGHT NARE) Throat: Normal Respiratory: Diminished Cardiovascular: Normal GI:Auscultation: Decreased GI:Palpation: Normal GI: Tenderness: Diffuse (soft abdomen with mild diffuse tenderness , BS +. npo wound infection .), Other (ISREAL DRAIN RIGHT SIDE ABDOMEN) Skin: Normal Musculoskeletal: Normal Mood Description: Calm Speech Pattern: Clear, Appropriate - Laboratory and Diagnostics Result Diagrams: 03/16/20 04:21 03/16/20 04:21 Labs: 03/13/20 13:45 Abdomen Gram Stain - Final 03/13/20 13:45 Abdomen - Preliminary Laboratory WBC 9.4 X10^3/uL (3.6-10.0) 03/16/20 04:21 RBC 3.68 X10^6/uL (3.5-5.4) 03/16/20 04:21 Hgb 10.7 g/dL (12.0-16.0) L 03/16/20 04:21 Hct 31.5 % (36.0-47.0) L 03/16/20 04:21 MCV 85.7 fL (80.0-100.0) 03/16/20 04:21 MCH 29.0 pg (27.0-34.0) 03/16/20 04:21 MCHC 33.9 g/dL (33.0-35.0) 03/16/20 04:21 RDW 14.1 % (11.6-16.5) 03/16/20 04:21 Plt Count 409 X10^3/uL (150.0-450.0) 03/16/20 04:21 Plt Count Comment Adequate (ADEQUATE) 03/14/20 07:15 MPV 7.0 fL (7.4-11.0) L 03/16/20 04:21 Neut % (Auto) 76.0 % (42.0-75.0) H 03/16/20 04:21 Lymph % (Auto) 14.7 % (21.0-51.0) L 03/16/20 04:21 [place] % (Auto) 6.8 % (0.0-13.0) 03/16/20 04:21 Eos % (Auto) 2.2 % (0.9-2.9) 03/16/20 04:21 Baso % (Auto) 0.3 % (0.2-1.0) 03/16/20 04:21 Neut # (Auto) 7.1 x10^3/uL (2.2-4.8) H 03/16/20 04:21 Lymph # (Auto) 1.4 X10^3/uL (1.3-2.9) 03/16/20 04:21 [place] # (Auto) 0.6 x10^3/uL (0.3-0.8) 03/16/20 04:21 Eos # (Auto) 0.2 x10^3/uL (0.0-0.2) 03/16/20 04:21 Baso # (Auto) 0.0 X10^3/uL (0.0-0.1) 03/16/20 04:21 Absolute Nucleated RBC 0.0 /100WBC 03/16/20 04:21 Total Counted 100 03/14/20 07:15 Neutrophils % (Manual) 85 % (39-76) H 03/14/20 07:15 Band Neutrophils % 6 % (0-10) 03/14/20 07:15 Lymphocytes % (Manual) 5 % (13-43) L 03/14/20 07:15 Monocytes % (Manual) 4 % (4-9) 03/14/20 07:15 Eosinophils % (Manual) 1 % (0-6) 03/13/20 07:15 Plt Morphology Comment Normal (NORMAL) 03/14/20 07:15 RBC Morphology Normal (NORMAL) 03/14/20 07:15 Sodium 138 mmol/L (136-145) 03/16/20 04:21 Corrected Sodium TNP 03/16/20 04:21 Potassium 3.9 mmol/L (3.5-5.1) 03/16/20 04:21 Chloride 104 mmol/L (98-107) 03/16/20 04:21 Carbon Dioxide 27.0 mmol/L (21-32) 03/16/20 04:21 BUN 6 mg/dL (7-18) L 03/16/20 04:21 Creatinine 0.60 mg/dL (0.55-1.02) 03/16/20 04:21 Est GFR (MDRD) Af Amer > 60 (>60) 03/16/20 04:21 Est GFR (MDRD) Non-Af > 60 (>60) 03/16/20 04:21 Glucose 96 mg/dL (65-99) 03/16/20 04:21 Calcium 8.8 mg/dL (8.5-10.1) 03/16/20 04:21 Corrected Calcium 10.2 mg/dL (8.5-10.1) H 03/16/20 04:21 Magnesium 1.8 mg/dL (1.7-2.9) 03/15/20 04:18 Total Bilirubin 0.30 mg/dL (0.2-1.0) 03/16/20 04:21 AST 13 Units/L (15-37) L 03/16/20 04:21 ALT 21 Units/L (12-78) 03/16/20 04:21 Alkaline Phosphatase 41 Units/L (46-116) L 03/16/20 04:21 Total Protein 5.8 g/dL (6.4-8.2) L 03/16/20 04:21 Albumin 2.2 g/dL (3.4-5.0) L 03/16/20 04:21 Globulin 3.6 g/dL (2.5-4.5) 03/16/20 04:21 Albumin/Globulin Ratio 0.6 Ratio (1.1-2.1) L 03/16/20 04:21 HCG, Qual Negative <10 mIU/mL 03/13/20 07:15 Specimen Type Clean catch urine 03/13/20 13:25 Urine Color Yellow (YELLOW) 03/13/20 13:25 Urine Appearance Clear (CLEAR) 03/13/20 13:25 Urine pH 5.0 (5.0 - 8.0) 03/13/20 13:25 Ur Specific [place] 1.010 (1.000-1.030) 03/13/20 13:25 Urine Protein 1+ (NEGATIVE) 03/13/20 13:25 Urine Glucose (UA) Negative (NEGATIVE) 03/13/20 13:25 Urine Ketones Negative (NEGATIVE) 03/13/20 13:25 Urine Occult Blood Negative (NEGATIVE) 03/13/20 13:25 Urine Nitrite Negative (NEGATIVE) 03/13/20 13:25 Urine Bilirubin Negative (NEGATIVE) 03/13/20 13:25 Urine Urobilinogen Normal (NORMAL) 03/13/20 13:25 Ur Leukocyte Esterase Negative (NEGATIVE) 03/13/20 13:25 Urine RBC 0-2 /HPF (0-3) 03/13/20 13:25 Urine WBC 0-2 /HPF (0-5) 03/13/20 13:25 Ur Squamous Epith Cells Negative /HPF (NEGATIVE) 03/13/20 13:25 Urine Bacteria Negative /HPF (NEGATIVE) 03/13/20 13:25 Ur Culture Indicated? No/not indicated 03/13/20 13:25 SARS-CoV-2 (PCR) Cancelled 03/13/20 11:48 SARS CoV-2 RNA Rapid TYLER Negative (NEGATIVE) 03/13/20 11:48 Tissue Pathology To follow 03/13/20 14:50 - Assessment and Plan 1: active Crohn's disease with perforated small bowel and entero- enreric fistula .s/p resection day 3 . to advance diet to soft . maybe discharged and follow in 8 days . on oral Cipro and steroids 10 mg daily . - Problem Patient Problems: Patient Problems Perforation bowel (Acute) K63.1 Crohn's disease (Acute) K50.90
[2020-03-16 12:57] VITALS: BP 132/83
== END 2020-03-16 12:30 | disposition home or self-care (01) | DRG 345 ==
LOC: ER 06:42 → MED/SURG 11:54
PROVIDERS: ADMIT Internal Medicine; ATTEND Internal Medicine
DX: K21.9 Gastro-esophageal reflux disease without esophagitis; K50.013 Crohn's disease of small intestine with fistula; R11.2 Nausea with vomiting, unspecified; K56.51 Intestinal adhesions [bands], with partial obstruction; K63.1 Perforation of intestine (nontraumatic); Z20.828 Contact with and (suspected) exposure to other viral communicable diseases